=== PATIENT | male | born 1990 | race Caucasian/White ===

== ENCOUNTER 2023-07-29 19:14 | Emergency (ER) | payer OTHER, SELFPAY ==
[2023-07-29 19:28] VITALS: BP 143/91; PULSE 80; RESP 16; TEMP 37.1; O2SAT 98; BMI 27.1
--- NOTE | 2023-07-29 21:21 | ED_ITS ---
HPI - Back Pain/Injury General Chief Complaint: Back Pain/Injury Stated Complaint: Neck muscle inj Time Seen by Provider: 07/29/23 21:20 Source: patient History of Present Illness HPI Narrative: Patient is a 32-year-old healthy male who presents today with left sided back and neck pain. He reports that was lifting 365 lb when he felt pop in his trapezius. He has significant pain reports that he is unable to move his neck at all although he is holding it up. He has no numbness tingling or weakness. Has not taken anything for pain happened just prior to arrival. Related Data Previous Rx's Medication Instructions Recorded cyclobenzaprine 5 mg tablet 5 mg PO TID PRN muscle spasm #10 07/29/23 tabs hydrocodone 5 mg-acetaminophen 325 1 tab PO Q6H PRN pain #10 tabs 07/29/23 mg tablet Allergies Allergy/AdvReac Type Severity Reaction Status Date / Time No Known Drug Allergies Allergy Verified 07/29/23 21:33 Review of Systems Review of Systems ROS Unobtainable: All systems reviewed & are unremarkable except as noted in HPI and below Patient History Social History Smoking Status: Never smoker Smoking Status: Never smoker alcohol intake frequency: holidays/special occasions only Substance Use Type: does not use Exam Initial Vital Signs Initial Vital Signs: Vital Signs Temperature 98.8 F 07/29/23 19:28 Pulse Rate 80 07/29/23 19:28 Respiratory Rate 16 07/29/23 19:28 Blood Pressure 143/91 H 07/29/23 19:28 Pulse Oximetry 98 07/29/23 19:28 Oxygen Delivery Method Room Air 07/29/23 19:28 GENERAL: Well-appearing, well-nourished and in no acute distress. NECK: No vertebral tenderness no step-offs pain with passive motion in all directions of his neck able to hold it up and looks straight forward. BACK: He is tender in his trapezius by his shoulder blade pinpoint reproducible with palpation on left side. CARDIOVASCULAR: peripheral pulses in tact, cap refill <2 sec RESPIRATORY: No respiratory distress, speaks in full sentences without difficulty EXTREMITIES: Normal range of motion, no clubbing or edema. Neurovascularly intact Left arm radial median and ulnar nerve intact distal radial pulse intact. Passive motion stable. He is able to abduct his arm passively but not actively. NEUROLOGICAL: Cranial nerves II through XII grossly intact. Normal gait and speech. SKIN: Warm, dry, no petechiae, no rashes or lesions. Course Orders Ordered: Discontinued Medications Hydrocodone Bitart/Acetaminophen (Hydrocodone/Acet 5/325 Prepack) 1 bottle MISC SEEINSTR ONE Stop: 07/29/23 21:26 Last Admin: 07/29/23 21:33 Dose: 1 bottle Documented By: JESSICA Diazepam (Diazepam 5 Mg Tablet) 5 mg PO NOW ONE Stop: 07/29/23 21:26 Last Admin: 07/29/23 21:33 Dose: 5 mg Documented By: JESSICA Ketorolac Tromethamine (Ketorolac 30 Mg/Ml Vial) 30 mg IM NOW ONE Stop: 07/29/23 21:26 Last Admin: 07/29/23 21:33 Dose: 30 mg Documented By: JESSICA Vital Signs Vital signs: Vital Signs - 8 hr 07/29/23 19:28 07/29/23 21:50 Temperature 98.8 F Pulse Rate 80 80 Respiratory Rate 16 16 Blood Pressure 143/91 H 155/96 H Pulse Oximetry 98 99 Oxygen Delivery Method Room Air Room Air MDM - Back Pain/Injury MDM Narrative Medical decision making narrative: Patient healthy male sounds as though he is having pain after did lifting quite a hefty amount. Tender reproducible to touch. He is not actually having neck pain at all it is all along the trapezius muscle. No weakness. No need for imaging at this time. Supportive care only may require outpatient MRI. Discharge Plan Departure Patient Disposition: Home Clinical Impression: Back pain due to injury Instructions: DI for Back Strain or Sprain Activity Restrictions/Additional Instructions: *You have been diagnosed with probable trapezius injury *What to do: At this time ice or heat as needed. Increase range of motion as tolerated. Avoid lifting until full recovery. May require outpatient MRI if pain continues you will need to talk to her PCM about this. *Continue to take medications as directed Motrin 600 mg every 6 hours if needed for [id number] pain (do not take until morning) [place] 1 tablet every 6 hours if needed for severe pain Flexeril 5 mg every 8 hours if needed for muscle spasm *Follow up with your primary care provider in 2-3 days or call [phone] *Return to ER if you should have increasing pain numbness tingling weakness [or] any new, worsening or concerning symptoms CONTROLLED SUBSTANCE DISCHARGE (Narcotoic/benzodiazepine/Flexeril/Phenergan) 1. You have been prescribed narcotic medications, it does have acetaminophen/Tylenol/paracetamol in it, DO NOT TAKE MORE THAN 4,00mg in 24 hours of Tylenol. TRAMADOL DOES NOT CONTAIN TYLENOL 2. Please understand that we cannot provide further refills of narcotics, benzodiazepines or controlled substances through the ED and her pain management will need to be through your provider. 3. While on these medications you cannot drive or operate heavy machinery. 4. You cannot sign legal documents or perform any duties such as this. 5. As long as you're taking opiate pain medications he should also be taking a stool softener such as Colace, Dulcolax, MiraLAX or prune juice, to help avoid constipation. Prescriptions: New hydrocodone-acetaminophen 5-325 mg tablet 1 tab PO Q6H PRN (Reason: pain) Qty: 10 0RF cyclobenzaprine 5 mg tablet 5 mg PO TID PRN (Reason: muscle spasm) Qty: 10 0RF Stand Alone Forms: Patient Portal/API
[2023-07-29] MEDS: KETOROLAC 30 MG/ML VIAL IM (21:33)
[2023-07-29] MEDS: HYDROCODONE/ACET 5/325 PREPACK 1 BOTTLE MISC (21:33)
[2023-07-29] MEDS: diazePAM 5 MG TABLET PO (21:33)
[2023-07-29 21:50] VITALS: BP 155/96; PULSE 80; RESP 16; O2SAT 99
== END 2023-07-29 21:56 | disposition home or self-care (01) ==
PROVIDERS: Emergency Provider Emergency Medicine
DX: S29.9XXA Unspecified injury of thorax, initial encounter (principal); X50.0XXA Overexertion from strenuous movement or load, initial encounter
CPT/HCPCS: 96372; 99283; J1885

== ENCOUNTER 2023-09-03 17:27 | Emergency (ER) | payer OTHER, SELFPAY ==
[2023-09-03 17:31] VITALS: BP 176/109; PULSE 72; RESP 16; TEMP 36.6; O2SAT 99; BMI 27.1
--- NOTE | 2023-09-03 18:07 | ED_ITS ---
HPI - Neck Pain/Injury General Chief Complaint: Neck Pain/Injury Stated Complaint: stiff neck, pain in back Time Seen by Provider: 09/03/23 18:07 Mode of arrival: Ambulatory History of Present Illness HPI Narrative: 33-year-old male nonsmoker with noncontributory medical history presents with a chief complaint of pain in the left side of his neck and upper shoulder. He was lifting weights, performing a new technique and when lifting heavier weight he is used to up and over his head he felt a pulling sensation. He denies any direct trauma to the bone. Denies any numbness, tingling or weakness. Has significant pain in the musculature on the left side of his neck that is worse when moves and improves with rest. He denies fever chills, takes no blood thinners and is otherwise well and free of complaint Related Data Previous Rx's Medication Instructions Recorded cyclobenzaprine 5 mg tablet 5 mg PO TID PRN muscle spasm #10 07/29/23 tabs hydrocodone 5 mg-acetaminophen 325 1 tab PO Q6H PRN pain #10 tabs 07/29/23 mg tablet cyclobenzaprine 10 mg tablet 10 mg PO TID PRN muscle spasm #14 09/03/23 tabs hydrocodone 5 mg-acetaminophen 325 1 tab PO Q4-6H PRN pain #10 tabs 09/03/23 mg tablet ketorolac 10 mg tablet 10 mg PO Q6H PRN pain #14 tabs 09/03/23 lidocaine 5 % topical patch 1 patch topical DAILY #15 ea 09/03/23 (Lidoderm) Allergies Allergy/AdvReac Type Severity Reaction Status Date / Time No Known Drug Allergies Allergy Verified 07/29/23 21:33 Review of Systems Review of Systems Narrative: GENERAL: Denies chills, fatigue, malaise, fever, sweats. HEENT: Denies sinus pain, ear pain, sore throat, difficulty swallowing, d izziness. RESPIRATORY: Denies dyspnea, cough, wheezing, hemoptysis, sputum. CARDIOVASCULAR: Denies chest pain, palpitations, orthopnea, edema, GASTROINTESTINAL: Denies nausea, vomiting, abdominal pain, diarrhea, constipation, melena. : Denies dysuria, frequency, incontinence, hematuria, urinary retention. MUSCULOSKELETAL: See HPI SKIN: Denies rash, skin lesions, or other NEUROLOGIC: See HPI PSYCHIATRIC: No concerning psychosocial issues. 12 point review of systems is negative except for those stated above Patient History Social History Smoking Status: Never smoker Smoking Status: Never smoker alcohol intake frequency: holidays/special occasions only Substance Use Type: does not use Exam Narrative Exam Narrative: GEN: AOx3 and in mild distress NECK: pain in lateral neck musculature, no pain with axial load. No bony tenderness, no measurable extremity numbness, weakness or tingling EYES: Pupils are equal, round, and reactive to light and accommodation. Extraoccular muscles are intact bilaterally. There is no subconjunctival hemorrhage or exudate. CHEST: Lungs are clear to auscultation bilaterally and free of wheezes, rales, or rhonchi. Heart rate is regular rhythm, there are no murmurs, clicks, rubs, or gallops. There is no chest wall tenderness. ABD: Abdomen is soft and nontender. There is no guarding or rebound. Bowel sounds are normal in all 4 quadrants. There is no mass or organomegaly. EXT: Full painless ROM of all extremities with no loss of sensation or strength. SKIN: Warm, pink, and dry. No erythema or rash Initial Vital Signs Initial Vital Signs: Vital Signs Temperature 98 F 09/03/23 17:31 Pulse Rate 72 09/03/23 17:31 Respiratory Rate 16 09/03/23 17:31 Blood Pressure 176/109 H 09/03/23 17:31 Pulse Oximetry 99 09/03/23 17:31 Oxygen Delivery Method Room Air 09/03/23 17:31 Course Orders Ordered: Discontinued Medications Cyclobenzaprine HCl (Cyclobenzaprine 10 Mg Tablet) 10 mg PO NOW ONE Stop: 09/03/23 18:08 Last Admin: 09/03/23 18:46 Dose: 10 mg Ketorolac Tromethamine (Ketorolac 30 Mg/Ml Vial) 30 mg IM NOW ONE Stop: 09/03/23 18:08 Last Admin: 09/03/23 18:45 Dose: 30 mg Vital Signs Vital signs: Vital Signs - 8 hr 09/03/23 17:31 Temperature 98 F Pulse Rate 72 Respiratory Rate 16 Blood Pressure 176/109 H Pulse Oximetry 99 Oxygen Delivery Method Room Air MDM - Neck Pain/Injury MDM Narrative Medical decision making narrative: [33] year old patient presents with left-sided neck pain Multiple etiologies for patient's symptoms considered including, but not limited to: Muscle spasm versus inflammation versus radiculopathy versus other [] Prior Charts reviewed in our EMR Primary Historian: patient Labs reviewed and interpreted by myself: Patient's history and physical exam reassuring, no direct trauma, no neurologic compromise no numbness, tingling or weakness. Patient's symptoms improved over duration of stay with above-stated therapies. Findings and discharge diagnosis discussed with patient/family followed by verbalization of understanding Return precautions discussed with patient/family whom verbalize understanding of diagnosis and plan Discharge Plan Departure Patient Disposition: Home Clinical Impression: Strain of neck muscle Instructions: Neck Sprain Activity Restrictions/Additional Instructions: *You have been diagnosed with [spasm of the paraspinal musculature on the left side of your neck and upper shoulder. As we discussed your history and physical exam are reassuring and there is no evidence of a bony neck injury, involvement of the spinal cord or other nerves.] *What to do: *Please continue to take your regular medications as directed. [x ] New medication prescriptions sent to your pharmacy: [ [facility]] [ ] New medication written as a paper prescription [ ] No new medications given *Please follow up with your primary care provider in 2-3 days, call for an appointment. Let them know you were seen in the Emergency Department and that we ask that you be seen in follow up. We will electronically transmit a record of today's note if your PCP is in our system *If you do not have a primary care provider please contact the [facility] Resource line at [phone]. They will ask some questions about your medical history and help get you set up with a doctor in the community. *Return to Emergency Department if you should have any new, worsening or concerning symptoms, such as [fever greater than 101 F, shaking chills, worsening pain, persistent vomiting or other bothersome symptoms] You have been prescribed a short course of narcotic medications. These are potentially dangerous and addictive medications that should be used carefully. While on these medications you cannot drive or operate heavy machinery. Additionally, you cannot sign legal documents or perform any duties such as this. Many people get constipated on narcotic medications so it would be advisable to discuss stool softeners with the pharmacist when you peanut picker your prescription. Please understand that we cannot provide further refills of narcotics or controlled substances through the ED and your pain management will need to be through your Primary Care Provider Prescriptions: New cyclobenzaprine 10 mg tablet 10 mg PO TID PRN (Reason: muscle spasm) Qty: 14 0RF hydrocodone-acetaminophen 5-325 mg tablet 1 tab PO Q4-6H PRN (Reason: pain) Qty: 10 0RF ketorolac 10 mg tablet 10 mg PO Q6H PRN (Reason: pain) Qty: 14 0RF lidocaine [Lidoderm] 5 % adhesive patch,medicated 1 patch TOP DAILY Qty: 15 0RF Rx Instructions: leave on most painful area for 12 hrs No Action hydrocodone-acetaminophen 5-325 mg tablet 1 tab PO Q6H PRN (Reason: pain) Qty: 10 0RF cyclobenzaprine 5 mg tablet 5 mg PO TID PRN (Reason: muscle spasm) Qty: 10 0RF Referrals: ProviderDesi [Primary Care Provider] - Stand Alone Forms: Patient Portal/API
[2023-09-03] MEDS: KETOROLAC 30 MG/ML VIAL IM (18:45)
[2023-09-03] MEDS: CYCLOBENZAPRINE 10 MG TABLET PO (18:46)
[2023-09-03 19:18] VITALS: BP 158/80; PULSE 80; RESP 16; O2SAT 97
[2023-09-03] MEDS: LIDOCAINE PATCH 1 EACH ADH..PATCH TOP (19:18)
== END 2023-09-03 19:19 | disposition home or self-care (01) ==
PROVIDERS: Emergency Provider Emergency Medicine
DX: S16.1XXA Strain of muscle, fascia and tendon at neck level, initial encounter (principal); X50.0XXA Overexertion from strenuous movement or load, initial encounter
CPT/HCPCS: 96372; 99283; 99284; J1885

== ENCOUNTER 2024-07-21 15:23 | Emergency (ER) | payer OTHER, SELFPAY ==
[2024-07-21] VITALS (7 sets, daily range): BP systolic 154–199; BP diastolic 89–117; PULSE 85–89; RESP 18; TEMP 36.9; O2SAT 97–100; BMI 27.3
--- NOTE | 2024-07-21 16:28 | DI.CT.S_ITS ---
PROCEDURE: CT ANGIO NECK INDICATIONS: Deadlift injury to left trap last sat TECHNIQUE: After the administration of intravenous contrast, 1.5 mm axial sections acquired from the aortic arch to the [place] of [place]. Maximum intensity projection (MIP) reformats were then performed. COMPARISON: None. FINDINGS: Image quality: Diagnostic NECK ANGIOGRAPHY: Aortic arch and subclavian arteries: Normal flow, no aneurysm. CCAs: No stenosis, occlusion, or aneurysm. ICA origins (by NASCET criteria): No hemodynamically significant narrowing. ICAs: No stenosis, occlusion or aneurysm. ECAs: Origins are patent. Vertebral arteries: Unremarkable Soft tissues: No drainable fluid collection. Lung apices: No pneumothorax Bones: No acute or suspicious abnormality. IMPRESSION: No significant abnormality is seen within the arteries of the neck. If there is high concern for focal musculoskeletal injury, consider targeted MRI. Any quantitative stenosis measurements were performed using the NASCET criteria. Dictated by: Olaf Madrid M.D. on 07/21/2024 at 17:52 Approved by: Olaf Madrid M.D. on 07/21/2024 at 17:56
--- NOTE | 2024-07-21 16:37 | ED.NECK ---
HPI - Neck Pain/Injury General Chief Complaint: Neck Pain/Injury Stated Complaint: back pain Time Seen by Provider: 07/21/24 16:37 Mode of arrival: Ambulatory History of Present Illness HPI Narrative: Patient is a 33-year-old male no significant past medical history comes into the ED for evaluation of left neck and arm pain. States that approximate 1 week ago he injured himself while that lifting, states that he did re-injure himself today after he had a mechanical trip and fall down steps, states that he grabbed the hand rail with his left arm, states that he did not hit his head. States that he had immediate pain in his left neck/left shoulder/upper extremity. He denies any numbness weakness tingling but states it is hard for him to turn his head to the right. Not on any blood thinners no other injuries Related Data Previous Rx's Medication Instructions Recorded cyclobenzaprine 5 mg tablet 5 mg PO TID PRN muscle spasm #10 07/29/23 tabs hydrocodone 5 mg-acetaminophen 325 1 tab PO Q6H PRN pain #10 tabs 07/29/23 mg tablet cyclobenzaprine 10 mg tablet 10 mg PO TID PRN muscle spasm #14 09/03/23 tabs hydrocodone 5 mg-acetaminophen 325 1 tab PO Q4-6H PRN pain #10 tabs 09/03/23 mg tablet ketorolac 10 mg tablet 10 mg PO Q6H PRN pain #14 tabs 09/03/23 lidocaine 5 % topical patch 1 patch topical DAILY #15 ea 09/03/23 (Lidoderm) diazepam 5 mg tablet (Valium) 5 mg PO BEDTIME PRN muscle spasm 07/21/24 #5 tabs oxycodone-acetaminophen 5 mg-325 1 tab PO Q12H PRN pain 3 days #9 07/21/24 mg tablet (Percocet) tabs Allergies Allergy/AdvReac Type Severity Reaction Status Date / Time No Known Drug Allergies Allergy Verified 07/29/23 21:33 Review of Systems Review of Systems Narrative: HEENT: Denies headache, eye drainage, eye irritation, head trauma, sore throat, voice change Cardiovascular: Denies any chest pain, palpitations, shortness of breath, tachycardia Respiratory: Denies any shortness of breath, cough, wheeze, stridor GI/: Denies any abdominal pain, nausea, vomiting, diarrhea, bright red blood per rectum, melanotic stools, urinary frequency, urinary retention, dysuria, hematuria MSK: Positive for left neck pain left shoulder pain Skin: Denies any rashes, lesions, discoloration Neuro: Denies any headache, lightheadedness, dizziness, fainting, weakness Psych: Denies SI/HI Patient History Social History Smoking Status: Never smoker Smoking Status: Never smoker alcohol intake frequency: holidays/special occasions only Substance Use Type: does not use Exam Narrative Exam Narrative: General: Cooperative, comfortable, well-developed, not in acute distress HEENT: Normocephalic, atraumatic, PERRLA, normal sclera, eyelids normal, Neck: Active full range of motion, atraumatic Chest: Normal to inspection, negative crepitus, no overlying erythema ecchymosis Respiratory: Normal respiratory effort, not in acute respiratory distress, clear to auscultation bilaterally negative cough, wheeze, tachypnea, rhonchi, rales Cardiology: Regular rate rhythm negative gallop, murmur, rubs GI/: Normal to inspection, soft, nonrigid, no tenderness to palpation, exam deferred MSK: Patient with decreased range of motion of the left upper extremity secondary to pain, there is tenderness to palpation over the paraspinal muscles and the SCM of the left side, patient neurovascularly intact compartments soft, no other tenderness to palpation of any bony prominences Skin: No rashes lesions noted Neuro: Alert awake oriented x3, moves all 4 extremities spontaneously, cranial nerves intact, able to answer all questions appropriately follows commands appropriately Psych: Cooperative, negative suicidal or homicidal ideations Initial Vital Signs Initial Vital Signs: Vital Signs Temperature 98.4 F 07/21/24 15:28 Pulse Rate 87 07/21/24 15:28 Respiratory Rate 18 07/21/24 15:28 Blood Pressure 165/105 H 07/21/24 15:28 Pulse Oximetry 100 07/21/24 15:28 Oxygen Delivery Method Room Air 07/21/24 15:28 Course Orders Ordered: ED Orders 07/21/24 16:28 CT angio neck Stat 07/21/24 16:35 BMP [Basic Metabolic Panel] Stat CBC No Diff [Complete Blood Count NO DIFF] Stat MAG [Magnesium] Stat Discontinued Medications Diazepam (Diazepam 5 Mg Tablet) 5 mg PO NOW ONE Stop: 07/21/24 16:50 Last Admin: 07/21/24 16:57 Dose: 5 mg Documented By: RB Morphine Sulfate (Morphine 4 Mg/Ml Inj) 4 mg INJ NOW ONE Stop: 07/21/24 16:38 Last Admin: 07/21/24 16:41 Dose: 4 mg Documented By: RB Oxycodone HCl (Oxycodone 5 Mg/5 Ml Oral Solution) 5 mg PO Q4HR PRN PRN Reason: Pain, Moderate (4-6) Oxycodone/Acetaminophen (Oxycodone/Acetaminophen 5/325 Tablet) 1 tab PO NOW ONE Stop: 07/21/24 17:44 Last Admin: 07/21/24 17:49 Dose: 1 tab Documented By: STEPHAN Vital Signs Vital signs: Vital Signs - 8 hr 07/21/24 15:28 07/21/24 17:04 07/21/24 17:05 Temperature 98.4 F Pulse Rate 87 89 88 Respiratory Rate 18 Blood Pressure 165/105 H Pulse Oximetry 100 97 99 Oxygen Delivery Method Room Air 07/21/24 17:05 07/21/24 17:19 07/21/24 17:19 Temperature Pulse Rate 86 Respiratory Rate Blood Pressure 154/101 H 172/97 H Pulse Oximetry 99 Oxygen Delivery Method 07/21/24 17:30 07/21/24 17:30 07/21/24 18:00 Temperature Pulse Rate 87 85 Respiratory Rate Blood Pressure 157/89 H Pulse Oximetry 98 99 Oxygen Delivery Method 07/21/24 18:01 07/21/24 18:01 Temperature Pulse Rate 85 Respiratory Rate Blood Pressure 199/117 H Pulse Oximetry 99 Oxygen Delivery Method MDM - Neck Pain/Injury Differential Diagnosis Differential diagnosis: Likely torticollis, strain of neck muscle and other (Vertebral artery dissection, carotid artery dissection) Condition is:: Improved Lab Data Attestation: I reviewed the patient's lab results. 07/21/24 16:35 07/21/24 16:35 Labs: Lab Results 07/21/24 Range/Units 16:35 WBC 9.0 (4.5-11.0) X10^3/uL RBC 6.06 H (4.5-5.9) X10^6/uL Hgb 17.7 H (13.5-17.5) g/dL Hct 52.7 (41-53) % MCV 86.9 (80-100) fL MCH 29.2 (26-34) PG MCHC 33.6 (30-36) % RDW 14.5 (11.6-14.8) % Plt Count 492 H (150-400) X10^3/uL Sodium 138 (137-145) mmol/L Potassium 3.8 (3.4-5.1) mmol/L Chloride 103 (98-107) mmol/L Carbon Dioxide 24 (22-32) mmol/L BUN 13 (9-20) mg/dL Creatinine 0.95 (0.66-1.25) mg/dL Estimated GFR > 60 (>60) mL/min BUN/Creatinine Ratio 13.7 (6-22) Glucose 108 H (70-100) mg/dL Calcium 9.3 (8.4-10.2) mg/dL Magnesium 2.5 H (1.6-2.3) mg/dL MDM Narrative Medical decision making narrative: Patient is a 33-year-old male no significant past medical history presents to the ED complaining of left neck left shoulder pain after mechanical trip and fall prior to arrival. He states that approximately 1 week ago he strained/injured his left neck/left shoulder lifting. States that today he was going down the stairs slipped and fell, did not hit his head but did grab onto the railing with his left arm and hyper extended it. Denied any numbness weakness tingling, exam without any focal deficits patient was sent for CTA of the neck to rule out carotid or vertebral artery dissection which was negative, patient with significant improved symptoms after administration of Valium and Percocet, lab work unremarkable symptoms and imaging more consistent with cervical neck/arm strains brain. Patient will be sent home in a sling for comfort and instructed follow up with PCP and orthopedic surgery for further evaluation treatment. Patient verbalized understanding of this agrees to being discharged home with outpatient follow-up. Discharge Plan Departure Patient Disposition: Home Clinical Impression: Strain of neck muscle Qualifiers: Encounter type: initial encounter Qualified Code(s): S16.1XXA - Strain of muscle, fascia and tendon at neck level, initial encounter Prescriptions: New diazepam [Valium] 5 mg tablet 5 mg PO BEDTIME PRN (Reason: muscle spasm) Qty: 5 0RF oxycodone-acetaminophen [Percocet] 5-325 mg tablet 1 tab PO Q12H PRN (Reason: pain) 3 Days Qty: 9 0RF No Action cyclobenzaprine 10 mg tablet 10 mg PO TID PRN (Reason: muscle spasm) Qty: 14 0RF hydrocodone-acetaminophen 5-325 mg tablet 1 tab PO Q4-6H PRN (Reason: pain) Qty: 10 0RF ketorolac 10 mg tablet 10 mg PO Q6H PRN (Reason: pain) Qty: 14 0RF lidocaine [Lidoderm] 5 % adhesive patch,medicated 1 patch TOP DAILY Qty: 15 0RF Rx Instructions: leave on most painful area for 12 hrs hydrocodone-acetaminophen 5-325 mg tablet 1 tab PO Q6H PRN (Reason: pain) Qty: 10 0RF cyclobenzaprine 5 mg tablet 5 mg PO TID PRN (Reason: muscle spasm) Qty: 10 0RF Referrals: ProviderDesi [Primary Care Provider] -
[2024-07-21] MEDS: MORPHINE 4 MG/ML INJ INJ (16:41)
[2024-07-21] MEDS: diazePAM 5 MG TABLET PO (16:57)
[2024-07-21 17:00] LABS: Hematocrit 52.7 % (41-53); Hemoglobin 17.7 g/dL (13.5-17.5); Mean Corpuscular HGB Conc 33.6 % (30-36); Mean Corpuscular Hemoglobin 29.2 PG (26-34); Mean Corpuscular Volume 86.9 fL (80-100); Platelet Count 492 X10^3/uL (150-400); Red Blood Cell Count 6.06 X10^6/uL (4.5-5.9); Red Cell Distribution Width 14.5 % (11.6-14.8)
[2024-07-21 17:07] LABS: BUN Creatinine Ratio 13.7 (6-22); Blood Urea Nitrogen 13 mg/dL (9-20); Calcium 9.3 mg/dL (8.4-10.2); Carbon Dioxide 24 mmol/L (22-32); Chloride 103 mmol/L (98-107); Estimated Glomerular Filt Rate > 60 mL/min (>60); Glucose 108 mg/dL (70-100); HEMOLYSIS 31 (0-50); Magnesium 2.5 mg/dL (1.6-2.3); Potassium 3.8 mmol/L (3.4-5.1); Sodium 138 mmol/L (137-145)
[2024-07-21] MEDS: OXYCODONE/ACETAMINOPHEN 5/325 TABLET 1 TAB PO (17:49)
== END 2024-07-21 18:20 | disposition home or self-care (01) ==
PROVIDERS: Emergency Provider Student in an Organized Health Care Education/Training Program
DX: S16.1XXA Strain of muscle, fascia and tendon at neck level, initial encounter (principal); W01.0XXA Fall on same level from slipping, tripping and stumbling without subsequent striking against object, initial encounter
CPT/HCPCS: 36415; 70498; 80048; 83735; 85027; 96374; 99284; J2270; Q9967

== ENCOUNTER 2024-08-30 17:40 | Emergency (ER) | payer OTHER, SELFPAY ==
[2024-08-30] VITALS (13 sets, daily range): BP systolic 146–160; BP diastolic 78–98; PULSE 87–103; RESP 16–18; TEMP 36.7; O2SAT 93–100; BMI 29.0
--- NOTE | 2024-08-30 18:15 | ED_ITS ---
HPI - Back Pain/Injury General Chief Complaint: Back Pain/Injury Stated Complaint: Fell on Stairs, Can't Turn Head Time Seen by Provider: 08/30/24 18:02 History of Present Illness HPI Narrative: 34-year-old male with no reported past medical history presents by private vehicle from home for back and leg pain that occurred approximately 1 hour prior to arrival. Patient states that he has been moving from [place] to [place] and has been carrying lots of heavy boxes. While using a tiff to move his belongings he slipped and fell, hitting his left elbow and landing on his back. Patient states that his elbow is fine, but his entire back is extremely sore and he can barely move due to the pain. Pain radiates down his legs. He states that he had to get his girlfriend to help him into and out of the car. Denies numbness, urinary incontinence, other complaints at this time. Related Data Previous Rx's Medication Instructions Recorded cyclobenzaprine 5 mg tablet 5 mg PO TID PRN muscle spasm #10 07/29/23 tabs hydrocodone 5 mg-acetaminophen 325 1 tab PO Q6H PRN pain #10 tabs 07/29/23 mg tablet cyclobenzaprine 10 mg tablet 10 mg PO TID PRN muscle spasm #14 09/03/23 tabs hydrocodone 5 mg-acetaminophen 325 1 tab PO Q4-6H PRN pain #10 tabs 09/03/23 mg tablet ketorolac 10 mg tablet 10 mg PO Q6H PRN pain #14 tabs 09/03/23 lidocaine 5 % topical patch 1 patch topical DAILY #15 ea 09/03/23 (Lidoderm) diazepam 5 mg tablet (Valium) 5 mg PO BEDTIME PRN muscle spasm 07/21/24 #5 tabs cyclobenzaprine 10 mg tablet 10 mg PO TID PRN muscle spasm #15 08/30/24 tabs methylprednisolone 4 mg tablets in See Rx Instructions PO .COMPLEX 08/30/24 a dose pack (Medrol (Toby)) #21 ea Allergies Allergy/AdvReac Type Severity Reaction Status Date / Time No Known Drug Allergies Allergy Verified 08/30/24 17:52 Patient History Social History Smoking Status: Never smoker Smoking Status: Never smoker alcohol intake frequency: holidays/special occasions only Substance Use Type: does not use Exam Initial Vital Signs Initial Vital Signs: Vital Signs Temperature 98.1 F 08/30/24 17:46 Pulse Rate 103 H 08/30/24 17:46 Respiratory Rate 18 08/30/24 17:46 Blood Pressure 154/93 H 08/30/24 17:46 Pulse Oximetry 100 08/30/24 17:46 Oxygen Delivery Method Room Air 08/30/24 17:46 Const: Awake, alert, tearful, shaking, appears in significant pain Cardiac: regular rate, regular rhythm RESP: unlabored, clear bilaterally, no wheezing MSK:Generalized tenderness over cervical, thoracic, and lumbar back Skin: Warm, Dry, intact, no rashes Neuro: AO x3, CN II-XII grossly intact, dorsiflexion slightly less in RLE. Equal plantarflexion bilaterally Course Orders Ordered: Discontinued Medications Dexamethasone (Dexamethasone 10 Mg/Ml Vial) 10 mg IV NOW ONE Stop: 08/30/24 18:25 Last Admin: 08/30/24 18:56 Dose: 10 mg Documented By: OLGA Diazepam (Diazepam 10 Mg/2 Ml Syringe) 3 mg IV NOW ONE Stop: 08/30/24 18:25 Last Admin: 08/30/24 18:56 Dose: 3 mg Documented By: OLGA Diazepam (Diazepam 10 Mg/2 Ml Syringe) 3 mg IV NOW ONE Stop: 08/30/24 22:41 Last Admin: 08/30/24 22:49 Dose: 3 mg Documented By: MONICO Acetaminophen (Ofirmev) 1,000 mg in 100 mls @ 400 mls/hr IV NOW ONE Stop: 08/30/24 18:38 Last Infusion: 08/30/24 19:53 Dose: Infused Documented By: Admin: 08/30/24 18:56 Dose: 400 mls/hr Documented By: OLGA Ketorolac Tromethamine (Ketorolac 30 Mg/Ml Vial) 15 mg IV NOW ONE Stop: 08/30/24 20:17 Last Admin: 08/30/24 20:27 Dose: 15 mg Documented By: OLGA Ketorolac Tromethamine (Ketorolac 30 Mg/Ml Vial) 15 mg IV NOW ONE Stop: 08/30/24 22:41 Last Admin: 08/30/24 22:49 Dose: 15 mg Documented By: MONICO Morphine Sulfate (Morphine 4 Mg/Ml Inj) 4 mg IV NOW ONE Stop: 08/30/24 19:37 Last Admin: 08/30/24 19:52 Dose: 4 mg Documented By: MARIANNE Vital Signs Vital signs: Vital Signs - 8 hr 08/30/24 21:42 08/30/24 21:42 08/30/24 22:00 Pulse Rate 96 H 91 H Respiratory Rate Blood Pressure 157/91 H Pulse Oximetry 96 95 Oxygen Delivery Method Room Air 08/30/24 22:00 08/30/24 22:30 08/30/24 22:30 Pulse Rate 90 Respiratory Rate 18 Blood Pressure 146/87 H 146/86 H Pulse Oximetry 93 Oxygen Delivery Method Room Air MDM - Back Pain/Injury Imaging Data CT - cervical spine: Radiologist's Impression: PROCEDURE: CT LUMBAR SPINE WO CON INDICATIONS: GLF, LOW BACK PAIN,DIFFICULTY MOVING R LEG TECHNIQUE: Noncontrast 3 mm thick sections acquired from the T12 level to the sacrum. Sagittal and coronal reformats were constructed. For radiation dose reduction, the following was used: automated exposure control. COMPARISON: [facility], CT, CT THORACIC SPINE WO CON, 08/30/2024, 18:52. FINDINGS: Image quality: Excellent. Bones: There is normal bony alignment. No acute vertebral body compression fractures. No suspicious lytic or blastic bony lesions. No pars defects. No significant disc bulge, spinal stenosis or foraminal narrowing. Soft tissues: No retroperitoneal masses or hematomas. Visualized aorta is normal in caliber. IMPRESSION: No visualized fracture. Dictated by: Florinda Concepcion M.D. on 08/30/2024 at 19:52 Approved by: Florinda Concepcion M.D. on 08/30/2024 at 19:53 PROCEDURE: CT CERVICAL SPINE WO CON INDICATIONS: GLF, C-SPINE TENDERNESS TECHNIQUE: Noncontrast 3 mm thick sections acquired from the skull base to the T4 level. Sagittal and coronal reformats were then constructed. For radiation dose reduction, the following was used: automated exposure control, adjustment of mA and/or kV according to patient size. COMPARISON: [facility], CT, CT THORACIC SPINE WO CON, 08/30/2024, 18:52. FINDINGS: Image quality: Excellent. Bones: No fractures or dislocations. Visualized superior ribs are intact. Soft tissues: Prevertebral soft tissues are normal in thickness. No paravertebral hematomas. No apical pneumothoraces. IMPRESSION: No displaced fracture or traumatic subluxation. Dictated by: Florinda Concepcion M.D. on 08/30/2024 at 19:53 Approved by: Florinda Concepcion M.D. on 08/30/2024 at 19:54 PROCEDURE: CT THORACIC SPINE WO CON INDICATIONS: GLF, BACK PAIN TECHNIQUE: Noncontrast 3 mm thick sections acquired through the region of interest in the thoracic spine. Sagittal and coronal reformats were then constructed. For radiation dose reduction, the following was used: automated exposure control. COMPARISON: [facility], CT, CT CERVICAL SPINE WO CON, 08/30/2024, 18:52. [facility], CT, CT LUMBAR SPINE WO CON, 08/30/2024, 18:29. FINDINGS: Image quality: Excellent. Bones: There is normal overall bony alignment. No acute vertebral body compression fractures. No suspicious sclerotic or lytic bony lesions. Central spinal canal is of normal overall caliber. Soft tissues: No paravertebral masses or hematomas. Visualized posteromedial lungs appear clear. IMPRESSION: No visualized fracture. Dictated by: Florinda Concepcion M.D. on 08/30/2024 at 19:54 Approved by: Florinda Concepcion M.D. on 08/30/2024 at 19:55 3 PROCEDURE: MR LUMBAR SPINE WO CON INDICATIONS: SEVERE LOW BACK PAIN, R LEG WEAKNESS S/P FALL TECHNIQUE: Noncontrast sagittal T1 spin echo and T2 fast echo, sagittal STIR, and T2 fast spin echo through the lumbar spine. In cases with scoliosis, additional coronal T2 fast spin echo may be performed. COMPARISON: [facility], CT, CT LUMBAR SPINE WO CON, 08/30/2024, 18:29. FINDINGS: Image quality: Excellent. Alignment and Curvature: There is mild straightening of normal lumbar lordosis. No spondylolisthesis. Bone Marrow: Marrow is of normal overall signal. No acute vertebral body compression fractures. Spinal Cord: Conus medullaris terminates at the T12-L1 level. Visualized cord demonstrates normal signal and size. Paraspinous Soft Tissues: No paravertebral masses. T12-L1: Normal appearance. L1-L2: Normal appearance. L2-L3: Normal appearance. L3-L4: Bilateral facet arthrosis is seen. No significant central canal stenosis or neural foraminal narrowing. L4-L5: There is disc desiccation. Diffuse disc bulge and bilateral facet arthrosis is seen causing mild central canal stenosis, moderate left-sided neural foraminal narrowing and mild right-sided neural foraminal narrowing. Bulging disc likely contacting bilateral L4 nerve roots. L5-S1: There is disc desiccation. Diffuse disc bulge and bilateral facet arthrosis with mild bilateral neural foraminal narrowing. IMPRESSION: 1. No marrow edema. No acute vertebral body compression fracture or significant spondylolisthesis. 2. Degenerative disc bulge and bilateral facet arthrosis at L4-5 and L5-S1 levels causing various degrees of central canal stenosis and bilateral neural foraminal narrowing as described above. 3. No gross paraspinous soft tissue abnormalities. Dictated by: Larry Cohn M.D. on 08/30/2024 at 21:28 Approved by: Larry Cohn M.D. on 08/30/2024 at 21:31 [facility] Narrative Medical decision making narrative: Slip and fall with severe back pain. Patient seems to have weaker dorsiflexion in his right leg than his left leg, patient at this time is unable to identify if this is due to pain or if it is true weakness. Patient was shaking, tearful, seems to be very upset in the ER room. IV medications and CT imaging to be ordered. Patient was having difficulty describing where exactly his pain is located. He states that he was pain all across his back including his neck. Patient continuing to complain of significant pain even after IV medications administered. Small dose of morphine ordered for assessment. CT imaging negati ve for acute traumatic findings. With the severity of patient's pain and reported symptoms without obvious cause on CT scan a noncontrast MRI will be ordered. Noncontrast MRI shows L4-L5 disc bulge, mild canal stenosis, no evidence of cord compression or other findings. Patient's pain is now much more controlled, he was able to ambulate to and from the bathroom unassisted. Patient denies any problems ambulating, any difficulties urinating, any foot drop, or other complaints. He did have some return of pain when he swung his legs to get back into the bed, however patient has demonstrated improvement and is reporting feeling better. All CT and MRI results discussed with the patient at bedside. Steroids, muscle relaxers sent to pharmacy of choice. Patient was recommended to follow up with ortho spine if he continues to experience symptoms and a referral number was provided. A single prepack given to patient to cover his worst pains tonight. Patient also given a copy of his CT and MRI reports to bring to his primary care doctor's office at the [facility]. Discharge Plan Departure Patient Disposition: Home Clinical Impression: Strain of lumbar region Instructions: DI for Back Pain With Sciatica Activity Restrictions/Additional Instructions: Your CTs today did not show any fracture. The MRI of your lower spine showed a small amount of bulging discs but your spinal cord is intact without compression. Take 1000 mg of Tylenol and 400 mg of ibuprofen every 4-6 hours f or pain. In addition a steroid pack and muscle relaxers has been sent to the [facility] in [place]. It was very important that you continue to move and do gentle activity- if you stop moving your muscles will become even more sore. Follow up with ortho spine if you continue to have problems. If you notice weakness of your extremities, are unable to urinate, or if you notice numbness after you wipe using the restroom return immediately to the emergency department for repeat evaluation. Prescriptions: New methylprednisolone [Medrol (Toby)] 4 mg tablets,dose pack See Rx Instructions .ROUTE .COMPLEX Qty: 21 0RF Rx Instructions: orally per package directions cyclobenzaprine 10 mg tablet 10 mg PO TID PRN (Reason: muscle spasm) Qty: 15 0RF No Action cyclobenzaprine 10 mg tablet 10 mg PO TID PRN (Reason: muscle spasm) Qty: 14 0RF hydrocodone-acetaminophen 5-325 mg tablet 1 tab PO Q4-6H PRN (Reason: pain) Qty: 10 0RF ketorolac 10 mg tablet 10 mg PO Q6H PRN (Reason: pain) Qty: 14 0RF lidocaine [Lidoderm] 5 % adhesive patch,medicated 1 patch TOP DAILY Qty: 15 0RF Rx Instructions: leave on most painful area for 12 hrs hydrocodone-acetaminophen 5-325 mg tablet 1 tab PO Q6H PRN (Reason: pain) Qty: 10 0RF cyclobenzaprine 5 mg tablet 5 mg PO TID PRN (Reason: muscle spasm) Qty: 10 0RF diazepam [Valium] 5 mg tablet 5 mg PO BEDTIME PRN (Reason: muscle spasm) Qty: 5 0RF Referrals: Provider,Desi MCBRIDE [Primary Care Provider] - Stand Alone Forms: Patient Portal/API
--- NOTE | 2024-08-30 18:25 | DI.CT.S_ITS ---
PROCEDURE: CT LUMBAR SPINE WO CON INDICATIONS: GLF, LOW BACK PAIN,DIFFICULTY MOVING R LEG TECHNIQUE: Noncontrast 3 mm thick sections acquired from the T12 level to the sacrum. Sagittal and coronal reformats were constructed. For radiation dose reduction, the following was used: automated exposure control. COMPARISON: [facility], CT, CT THORACIC SPINE WO CON, 08/30/2024, 18:52. FINDINGS: Image quality: Excellent. Bones: There is normal bony alignment. No acute vertebral body compression fractures. No suspicious lytic or blastic bony lesions. No pars defects. No significant disc bulge, spinal stenosis or foraminal narrowing. Soft tissues: No retroperitoneal masses or hematomas. Visualized aorta is normal in caliber. IMPRESSION: No visualized fracture. Dictated by: Florinda Concepcion M.D. on 08/30/2024 at 19:52 Approved by: Florinda Concepcion M.D. on 08/30/2024 at 19:53
--- NOTE | 2024-08-30 18:40 | DI.CT.S_ITS ---
PROCEDURE: CT THORACIC SPINE WO CON INDICATIONS: GLF, BACK PAIN TECHNIQUE: Noncontrast 3 mm thick sections acquired through the region of interest in the thoracic spine. Sagittal and coronal reformats were then constructed. For radiation dose reduction, the following was used: automated exposure control. COMPARISON: [facility], CT, CT CERVICAL SPINE WO CON, 08/30/2024, 18:52. [facility], CT, CT LUMBAR SPINE WO CON, 08/30/2024, 18:29. FINDINGS: Image quality: Excellent. Bones: There is normal overall bony alignment. No acute vertebral body compression fractures. No suspicious sclerotic or lytic bony lesions. Central spinal canal is of normal overall caliber. Soft tissues: No paravertebral masses or hematomas. Visualized posteromedial lungs appear clear. IMPRESSION: No visualized fracture. Dictated by: Florinda Concepcion M.D. on 08/30/2024 at 19:54 Approved by: Florinda Concepcion M.D. on 08/30/2024 at 19:55
--- NOTE | 2024-08-30 18:40 | DI.CT.S_ITS ---
PROCEDURE: CT CERVICAL SPINE WO CON INDICATIONS: GLF, C-SPINE TENDERNESS TECHNIQUE: Noncontrast 3 mm thick sections acquired from the skull base to the T4 level. Sagittal and coronal reformats were then constructed. For radiation dose reduction, the following was used: automated exposure control, adjustment of mA and/or kV according to patient size. COMPARISON: [facility], CT, CT THORACIC SPINE WO CON, 08/30/2024, 18:52. FINDINGS: Image quality: Excellent. Bones: No fractures or dislocations. Visualized superior ribs are intact. Soft tissues: Prevertebral soft tissues are normal in thickness. No paravertebral hematomas. No apical pneumothoraces. IMPRESSION: No displaced fracture or traumatic subluxation. Dictated by: Florinda Concepcion M.D. on 08/30/2024 at 19:53 Approved by: Florinda Concepcion M.D. on 08/30/2024 at 19:54
[2024-08-30] MEDS: DEXAMETHASONE 10 MG/ML VIAL IV (18:56)
[2024-08-30] MEDS: diazePAM 10 MG/2 ML SYRINGE 3 MG IV ×2 (18:56→22:49)
[2024-08-30] MEDS: ACETAMINOPHEN IV 1,000 MG/100 ML VIAL 400 MG IV (18:56)
[2024-08-30] MEDS: MORPHINE 4 MG/ML INJ IV (19:52)
--- NOTE | 2024-08-30 20:18 | DI.MRI.S_ITS ---
PROCEDURE: MR LUMBAR SPINE WO CON INDICATIONS: SEVERE LOW BACK PAIN, R LEG WEAKNESS S/P FALL TECHNIQUE: Noncontrast sagittal T1 spin echo and T2 fast echo, sagittal STIR, and T2 fast spin echo through the lumbar spine. In cases with scoliosis, additional coronal T2 fast spin echo may be performed. COMPARISON: [facility], CT, CT LUMBAR SPINE WO CON, 08/30/2024, 18:29. FINDINGS: Image quality: Excellent. Alignment and Curvature: There is mild straightening of normal lumbar lordosis. No spondylolisthesis. Bone Marrow: Marrow is of normal overall signal. No acute vertebral body compression fractures. Spinal Cord: Conus medullaris terminates at the T12-L1 level. Visualized cord demonstrates normal signal and size. Paraspinous Soft Tissues: No paravertebral masses. T12-L1: Normal appearance. L1-L2: Normal appearance. L2-L3: Normal appearance. L3-L4: Bilateral facet arthrosis is seen. No significant central canal stenosis or neural foraminal narrowing. L4-L5: There is disc desiccation. Diffuse disc bulge and bilateral facet arthrosis is seen causing mild central canal stenosis, moderate left-sided neural foraminal narrowing and mild right-sided neural foraminal narrowing. Bulging disc likely contacting bilateral L4 nerve roots. L5-S1: There is disc desiccation. Diffuse disc bulge and bilateral facet arthrosis with mild bilateral neural foraminal narrowing. IMPRESSION: 1. No marrow edema. No acute vertebral body compression fracture or significant spondylolisthesis. 2. Degenerative disc bulge and bilateral facet arthrosis at L4-5 and L5-S1 levels causing various degrees of central canal stenosis and bilateral neural foraminal narrowing as described above. 3. No gross paraspinous soft tissue abnormalities. Dictated by: Larry Cohn M.D. on 08/30/2024 at 21:28 Approved by: Larry Cohn M.D. on 08/30/2024 at 21:31
[2024-08-30] MEDS: KETOROLAC 30 MG/ML VIAL 15 MG IV ×2 (20:27→22:49)
--- NOTE | 2024-08-30 20:31 | PC.NURSE ---
Addendum entered by Swati Zapien R.N. 08/30/24 22:13: Pt returns from [facility] and belongings brought back from security. Pt confirms all belongings are returned. Original Note: Pt asks for his belongings, including his wallet, phone, watch and keys locked up while at [facility]. Those items are labeled with his information and given to security while patient at [facility].
--- NOTE | 2024-08-30 21:14 | PC.NURSE ---
Pt ambulated to restroom, Pt c/o pain and dificulty lifting feet up onto gurney
== END 2024-08-30 23:05 | disposition home or self-care (01) ==
PROVIDERS: Emergency Provider Emergency Medicine
DX: S39.012A Strain of muscle, fascia and tendon of lower back, initial encounter (principal); M54.2 Cervicalgia; M54.6 Pain in thoracic spine; M62.81 Muscle weakness (generalized); W01.0XXA Fall on same level from slipping, tripping and stumbling without subsequent striking against object, initial encounter
CPT/HCPCS: 36415; 72125; 72128; 72131; 72148; 96365; 96375; 96376; 99284; 99285; J0136; J1100; J1885; J2270; J3360

== ENCOUNTER 2024-08-31 09:00 | Emergency (ER) | payer OTHER, SELFPAY ==
[2024-08-31 09:10] VITALS: BP 143/88; PULSE 103; RESP 22; TEMP 36.8; O2SAT 99; BMI 29.0
--- NOTE | 2024-08-31 09:20 | ED_ITS ---
HPI - Back Pain/Injury General Chief Complaint: Back Pain/Injury Stated Complaint: Back pain isn't going away Time Seen by Provider: 08/31/24 09:20 Source: patient History of Present Illness HPI Narrative: Patient is a 34-year-old male no past medical history presents for persistent low back pain, was seen here on 08/30/2024 after he had a ground level fall while he was moving. Patient did have CT and MRI of his low back at that time. MRI did show some mild degenerative disc bulge at the L4 through S1 but no acute findings. Patient states that he has had persistent pain therefore decided come into the ED for further evaluation treatment. No numbness weakness tingling down bilateral lower extremity is able to stand bear weight ambulate however slow secondary to pain. No saddle paresthesias no urinary or bladder retention or incontinence. No new traumas Related Data Previous Rx's Medication Instructions Recorded cyclobenzaprine 5 mg tablet 5 mg PO TID PRN muscle spasm #10 07/29/23 tabs hydrocodone 5 mg-acetaminophen 325 1 tab PO Q6H PRN pain #10 tabs 07/29/23 mg tablet cyclobenzaprine 10 mg tablet 10 mg PO TID PRN muscle spasm #14 09/03/23 tabs hydrocodone 5 mg-acetaminophen 325 1 tab PO Q4-6H PRN pain #10 tabs 09/03/23 mg tablet ketorolac 10 mg tablet 10 mg PO Q6H PRN pain #14 tabs 09/03/23 lidocaine 5 % topical patch 1 patch topical DAILY #15 ea 09/03/23 (Lidoderm) diazepam 5 mg tablet (Valium) 5 mg PO BEDTIME PRN muscle spasm 07/21/24 #5 tabs cyclobenzaprine 10 mg tablet 10 mg PO TID PRN muscle spasm #15 08/30/24 tabs methylprednisolone 4 mg tablets in See Rx Instructions PO .COMPLEX 08/30/24 a dose pack (Medrol (Toby)) #21 ea oxycodone-acetaminophen 5 mg-325 1 tab PO Q8H PRN pain 3 days #9 08/31/24 mg tablet (Percocet) tabs Allergies Allergy/AdvReac Type Severity Reaction Status Date / Time No Known Drug Allergies Allergy Verified 08/30/24 17:52 Review of Systems Review of Systems Narrative: HEENT: Denies headache, eye drainage, eye irritation, head trauma, sore throat, voice change Cardiovascular: Denies any chest pain, palpitations, shortness of breath, tachycardia Respiratory: Denies any shortness of breath, cough, wheeze, stridor GI/: Denies any abdominal pain, nausea, vomiting, diarrhea, bright red blood per rectum, melanotic stools, urinary frequency, urinary retention, dysuria, hematuria MSK: Positive low back pain Skin: Denies any rashes, lesions, discoloration Neuro: Denies any headache, lightheadedness, dizziness, fainting, weakness Psych: Denies SI/HI Patient History Social History Smoking Status: Never smoker Smoking Status: Never smoker alcohol intake frequency: holidays/special occasions only Substance Use Type: does not use Exam Narrative Exam Narrative: General: Cooperative, comfortable, well-developed, not in acute distress HEENT: Normocephalic, atraumatic, PERRLA, normal sclera, eyelids normal, Neck: Active full range of motion, atraumatic Chest: Normal to inspection, negative crepitus, no overlying erythema ecchymosis Respiratory: Normal respiratory effort, not in acute respiratory distress, clear to auscultation bilaterally negative cough, wheeze, tachypnea, rhonchi, rales Cardiology: Regular rate rhythm negative gallop, murmur, rubs GI/: Normal to inspection, soft, nonrigid, no tenderness to palpation, exam deferred MSK: Full range of active range of motion of all 4 extremities, atraumatic, patient is able to stand bear weight ambulate unassisted however slowed secondary to pain neurovascularly intact bilateral lower extremities Skin: No rashes lesions noted Neuro: Alert awake oriented x3, moves all 4 extremities spontaneously, cranial nerves intact, able to answer all questions appropriately follows commands appropriately Psych: Cooperative, negative suicidal or homicidal ideations Initial Vital Signs Initial Vital Signs: Vital Signs Temperature 98.2 F 08/31/24 09:10 Pulse Rate 103 H 08/31/24 09:10 Respiratory Rate 22 08/31/24 09:10 Blood Pressure 143/88 H 08/31/24 09:10 Pulse Oximetry 99 08/31/24 09:10 Oxygen Delivery Method Room Air 08/31/24 09:10 Course Orders Ordered: Discontinued Medications Dexamethasone (Dexamethasone 10 Mg/Ml Vial) 10 mg IV NOW ONE Stop: 08/31/24 11:11 Last Admin: 08/31/24 11:21 Dose: 10 mg Documented By: NEGRITA Diazepam (Diazepam 5 Mg Tablet) 5 mg PO NOW ONE Stop: 08/31/24 09:29 Last Admin: 08/31/24 09:47 Dose: 5 mg Documented By: STEPHAN Hydromorphone HCl (Hydromorphone 0.5 Mg Inj) 0.5 mg IV NOW ONE Stop: 08/31/24 11:11 Last Admin: 08/31/24 11:20 Dose: 0.5 mg Documented By: NEGRITA Morphine Sulfate (Morphine 4 Mg/Ml Inj) 4 mg IM NOW ONE Stop: 08/31/24 09:29 Last Admin: 08/31/24 09:47 Dose: 4 mg Documented By: STEPHAN Vital Signs Vital signs: Vital Signs - 8 hr 08/31/24 09:10 08/31/24 09:36 08/31/24 10:00 Temperature 98.2 F Pulse Rate 103 H 103 H 103 H Respiratory Rate 22 Blood Pressure 143/88 H Pulse Oximetry 99 96 95 Oxygen Delivery Method Room Air 08/31/24 10:00 Temperature Pulse Rate Respiratory Rate Blood Pressure 151/95 H Pulse Oximetry Oxygen Delivery Method MDM - Back Pain/Injury MDM Narrative Medical decision making narrative: Patient 34-year-old male recently seen here for low back pain after mechanical trip and fall imaging at that time was less than 24 hours ago did have MRI without any acute fractures or findings. Patient without any cauda equina symptoms, in significant improvement of pain after administration of medication, is able to stand bear weight ambulate unassisted here however slow secondary to pain. PVR 0, strict return precautions given safe for discharge home with outpatient follow up Discharge Plan Departure Patient Disposition: Home Clinical Impression: Strain of lumbar region Activity Restrictions/Additional Instructions: Please follow-up with your orthopedic surgeon and PCP Please read the discharge instructions sheet carefully and bring all papers to all doctor follow-up visits, as it may contain information that your doctor may want to see. Disease processes change and evolve, if your symptoms worsen or if you develop any new symptoms that are concerning to you please return for evaluation. Your evaluation today does not show any evidence of any life- threatening/serious illnesses requiring admission to the hospital or surgery. Please follow-up with your doctor for re-evaluation in approximately 1 day. Seek immediate medical attention for any worrisome symptoms. Prescriptions: New oxycodone-acetaminophen [Percocet] 5-325 mg tablet 1 tab PO Q8H PRN (Reason: pain) 3 Days Qty: 9 0RF No Action cyclobenzaprine 10 mg tablet 10 mg PO TID PRN (Reason: muscle spasm) Qty: 14 0RF hydrocodone-acetaminophen 5-325 mg tablet 1 tab PO Q4-6H PRN (Reason: pain) Qty: 10 0RF ketorolac 10 mg tablet 10 mg PO Q6H PRN (Reason: pain) Qty: 14 0RF lidocaine [Lidoderm] 5 % adhesive patch,medicated 1 patch TOP DAILY Qty: 15 0RF Rx Instructions: leave on most painful area for 12 hrs methylprednisolone [Medrol (Toby)] 4 mg tablets,dose pack See Rx Instructions .ROUTE .COMPLEX Qty: 21 0RF Rx Instructions: orally per package directions cyclobenzaprine 10 mg tablet 10 mg PO TID PRN (Reason: muscle spasm) Qty: 15 0RF hydrocodone-acetaminophen 5-325 mg tablet 1 tab PO Q6H PRN (Reason: pain) Qty: 10 0RF cyclobenzaprine 5 mg tablet 5 mg PO TID PRN (Reason: muscle spasm) Qty: 10 0RF diazepam [Valium] 5 mg tablet 5 mg PO BEDTIME PRN (Reason: muscle spasm) Qty: 5 0RF Referrals: ProviderDesi [Primary Care Provider] - Stand Alone Forms: Patient Portal/API
[2024-08-31 09:36] VITALS: PULSE 103; O2SAT 96
[2024-08-31] MEDS: diazePAM 5 MG TABLET PO (09:47)
[2024-08-31] MEDS: MORPHINE 4 MG/ML INJ IM (09:47)
[2024-08-31 10:00] VITALS: BP 151/95; PULSE 103; O2SAT 95
[2024-08-31] MEDS: HYDROMORPHONE 0.5 MG INJ IV (11:20)
[2024-08-31] MEDS: DEXAMETHASONE 10 MG/ML VIAL IV (11:21)
[2024-08-31 12:26] VITALS: O2SAT 97
[2024-08-31 12:27] VITALS: BP 155/77; PULSE 100; O2SAT 94
== END 2024-08-31 12:54 | disposition home or self-care (01) ==
PROVIDERS: Emergency Provider Student in an Organized Health Care Education/Training Program
DX: S39.012A Strain of muscle, fascia and tendon of lower back, initial encounter (principal); X58.XXXA Exposure to other specified factors, initial encounter
CPT/HCPCS: 51798; 96372; 96374; 96375; 99284; J1100; J1170; J2270

== ENCOUNTER 2025-04-12 07:30 | Outpatient (RCR) | payer OTHER, SELFPAY ==
--- NOTE | 2025-03-15 16:31 | PT.OIE ---
Current Diagnoses Low back pain, unspecified (03/15/25) Visit Care Team Role Provider Type APOLLO Mcwilliams Attending Provider Non-Staff Family Provider Primary Care Provider Referring Provider Specialty: Nursing Address: [address] [place] [address], [id number] Email: Physical Therapy Initial Evaluation PT-OP-A Visit Information Start: 03/14/25 17:29 Freq: Status: Active Protocol: Document 03/15/25 07:34 MB (Rec: 03/15/25 08:14 MB Desktop) Out-Patient Physical Therapy Visit Information Visit Information Visit Type Initial Evaluation Visit Note Pt arrives at 0734, 19 minutes late before evaluation Visit Start Time 07:34 Visit Stop Time 08:15 Visit Number 1 Number of MORTGAGE UNDERWRITER Visits 0 Evaluation Information Evaluation Date 03/15/25 PT-OP-B Current Condition Start: 03/14/25 17:29 Freq: Status: Active Protocol: Document 03/15/25 07:34 MB (Rec: 03/15/25 08:14 MB Desktop) Current Condition History of Current Condition Onset Date 08/30/24 Current Complaints Severe LBP that is intermittent History of Current Condition Pt was moving the end of August and he slipped when using tiff up the steps and he hurt his back. He lifts repetitively heavy weight for his job at the [employer]. He came to the ED and had diagnostics as below and was given pain medication. He has not been able to lift for exercise since the injury. He has had a change in his previous duties since the injury but does anticipate returning to his previous job by August. Pt has trouble sleeping and he gets back pain flare-ups. Lifting blinds overhead and sneezing caused a flare-up. He has had a few ED visits. Pt reports left lateral distal leg has needles feeling. He has not had legs given way or feeling week. Being upright is better. Stretching helps. Prior Treatments and Tests MRI lumbar spine 08/30/24: Degenerative disc bulge and bilateral facet arthrosis at L4-5 and L5-S1 levels causing various degrees of central canal stenosis and bilateral neural foraminal narrowing as described above. Treatment Goals Patient/Caregiver Goals To decrease pain PT-OP-C Subjective Start: 03/14/25 17:29 Freq: Status: Active Protocol: Document 03/15/25 07:34 MB (Rec: 03/15/25 08:14 MB Desktop) OP-PT Subjective Patient Comments Patient Comments See history of current condition Patient Questionnaires Oswestry Low Back Index Oswestry Score 13 Oswestry Impairment 20 to 39% Impaired (Score 20- 39) PT-OP-J Posture/Palpation/Skin Start: 03/14/25 17:29 Freq: Status: Active Protocol: Document 03/15/25 07:34 MB (Rec: 03/15/25 08:14 MB Desktop) Posture Evaluation Comments Posture Comments Gait pattern in socks: slow and decreased arms swing and stiffness at low back with gait Posture in standing in socks: forward head and rounded shoulders, left scapula is lower and less muscular than right scapular area and shoulder, right scapula mildly higher and forward than the left, pt is right handed, right iliac crest mildly higher than the left, increased mid foot overpronation, worse on the right. Repeated forward flexion: pain in LB only and fingertips 6 from the floor; repeated flexion pain the same and he can reach to feet last rep Repeated lumbar extension: 10 deg and repeated extension is bothersome SB in standing: B stiffness, more symptoms right SI area with left SB and pt moves about 15 deg both directions B Slump negative PT-OP-M Strength Start: 03/14/25 17:29 Freq: Status: Active Protocol: Document 03/15/25 07:34 MB (Rec: 03/15/25 08:14 MB Desktop) Hip Strength Hip Manual Muscle Testing Left Flexion (L2) 4+ Good+ Extension (S1) 4 Good Abduction 4+ Good+ Right Flexion (L2) 5 Normal Extension (S1) 5 Normal Abduction 5 Normal Comments B passive SLR about 45 deg L SI joint is stiffer than the right Knee Strength Knee Manual Muscle Testing Left Flexion (S2) 5 Normal Extension (L3) 5 Normal Right Flexion (S2) 5 Normal Extension (L3) 5 Normal Ankle/Foot Strength Ankle and Foot Manual Muscle Testing Left Dorsiflexion (L4) 5 Normal Right Dorsiflexion (L4) 5 Normal Toe Strength Toe Manual Muscle Testing Left Great Toe Flexion 5 Normal Right Great Toe Flexion 5 Normal PT-OP-Q Treatments Start: 03/14/25 17:29 Freq: Status: Active Protocol: Document 03/15/25 07:34 MB (Rec: 03/15/25 08:14 MB Desktop) Therapeutic Exercises Supine Exercises Pelvic realignment exercises Supine Exercise Name HEP and provided handout Side bilateral Equipment Used Blue ball Reps/Minutes 5 reps, 3 sec hold all exercises in order Comments Feet together ball squeeze iso , knee opp ankle iso, thigh press down iso Self-Care/Home Management Treatment Education Patient Education Body Mechanics,Home Exercise Program,Joint Protection, Posture Other Education Benefits of pelvic realignment exercises twice a day, benefits of icing and heating, pillow between legs and arms in side lying, log rolling, benefits of and plan for OPPT (alignment, posture, flexibility and then strength) and goal for pt to feel well- listened to during PT course PT-OP-T Assessment and Plan Start: 03/14/25 17:29 Freq: Status: Active Protocol: Document 03/15/25 07:34 MB (Rec: 03/15/25 08:14 MB Desktop) Physical Therapy Assessment Rehab Potential Rehabilitation Potential Fair Evaluation Complexity Number of Personal Factors/Comorbidities 1-2 Number of Body Systems Impaired 1-2 Clinical Presentation at Evaluation Evolving Impairments Impairments Gait,Pain,Posture,ROM,Soft Tissue Mobility,Strength Assessment Summary Assessment 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 MRI revealed degenerative disc bulge and bilateral facet arthrosis at L4-5 and L5-S1 levels causing various degrees of central canal stenosis and bilateral neural foraminal narrowing. Pt presents with postural changes, left leg weakness, reporting feeling better when up but less pain with forward flexion than with lumbar extension in standing and SI stiffness. He will benefit from PT to improve alignment, flexibility, myofascial motility, pain, core and LE strengthening, balance and body mechanics/ ergonomics. He thinks he will return to his previous duties in 08/25 that include heavy and repetitive lifting. Physical Therapy Plan Frequency and Duration Frequency of Treatment 1-2x/wk Duration of treatment (weeks) 8 Plan of Care Start Date 03/15/25 Plan of Care End Date 05/16/25 Therapeutic Interventions Therapeutic Interventions Balance Training,Canalithic Repositioning,Home Exercise Program,Joint Mobilizations, Manual Therapy,Neuromuscular Re-education,Patient/Caregiver Education,Self-Care/Home Management,Soft Tissue Mobilization,Taping, Therapeutic Activities, Therapeutic Exercises Modalities Cold Pack/Ice Massage,Electric Stimulation,Hot Packs, Iontophoresis Next Visit Focus/Plan Next Note Type Treatment Note Next Visit Plan Review pelvic realignment exercises and initiate manual work Next, initiate flexibility exercises for hips, LEs and thoracic spine Next core, balance and LE strengthening progression Next lifting, body mechanics techniques
--- NOTE | 2025-03-15 16:31 | PT.OPPOC ---
Physical, Occupational & Speech Therapy At [facility] Current Diagnoses Low back pain, unspecified (03/15/25) Visit Care Team Role Provider Type APOLLO Mcwilliams Attending Provider Non-Staff Family Provider Primary Care Provider Referring Provider Specialty: Nursing Address: [address] [place] [address], [id number] Email: Plan Of Care PT-OP-B Current Condition Start: 03/14/25 17:29 Freq: Status: Active Protocol: Document 03/15/25 07:34 MB (Rec: 03/15/25 08:14 MB Desktop) Current Condition History of Current Condition Onset Date 08/30/24 Current Complaints Severe LBP that is intermittent History of Current Condition Pt was moving the end of August and he slipped when using tiff up the steps and he hurt his back. He lifts repetitively heavy weight for his job at the [employer]. He came to the ED and had diagnostics as below and was given pain medication. He has not been able to lift for exercise since the injury. He has had a change in his previous duties since the injury but does anticipate returning to his previous job by August. Pt has trouble sleeping and he gets back pain flare-ups. Lifting blinds overhead and sneezing caused a flare-up. He has had a few ED visits. Pt reports left lateral distal leg has needles feeling. He has not had legs given way or feeling week. Being upright is better. Stretching helps. Prior Treatments and Tests MRI lumbar spine 08/30/24: Degenerative disc bulge and bilateral facet arthrosis at L4-5 and L5-S1 levels causing various degrees of central canal stenosis and bilateral neural foraminal narrowing as described above. 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 MRI revealed degenerative disc bulge and bilateral facet arthrosis at L4-5 and L5-S1 levels causing various degrees of central canal stenosis and bilateral neural foraminal narrowing. Pt presents with postural changes, left leg weakness, reporting feeling better when up but less pain with forward flexion than with lumbar extension in standing and SI stiffness. He will benefit from PT to improve alignment, flexibility, myofascial motility, pain, core and LE strengthening, balance and body mechanics/ ergonomics. He thinks he will return to his previous duties in 08/25 that include heavy and repetitive lifting. Physical Therapy Plan Frequency and Duration Frequency of Treatment 1-2x/wk Duration of treatment (weeks) 8 Plan of Care Start Date 03/15/25 Plan of Care End Date 05/16/25 Therapeutic Interventions Therapeutic Interventions Balance Training,Canalithic Repositioning,Home Exercise Program,Joint Mobilizations, Manual Therapy,Neuromuscular Re-education,Patient/Caregiver Education,Self-Care/Home Management,Soft Tissue Mobilization,Taping, Therapeutic Activities, Therapeutic Exercises Modalities Cold Pack/Ice Massage,Electric Stimulation,Hot Packs, Iontophoresis Next Visit Focus/Plan Next Note Type Treatment Note Next Visit Plan Review pelvic realignment exercises and initiate manual work Next, initiate flexibility exercises for hips, LEs and thoracic spine Next core, balance and LE strengthening progression Next lifting, body mechanics techniques Plan of Care Dates Plan of Care Start Date 03/15/25 Plan of Care End Date 05/16/25 Electronically Signed by: Minnie Sutton PT 03/15/25 [id number] If you are in agreement with this Plan of Care, please return a signed and dated copy. I have reviewed this Plan of Care and certify that the skilled therapy services above are required to meet the patient?s needs. Physician Signature Date Printed Name and Credentials Clinical Instructor Signature Printed Name and Credentials
--- NOTE | 2025-03-22 08:13 | PT.OTN ---
Current Diagnoses Low back pain, unspecified (03/22/25) Physical Therapy Treatment Note PT-OP-A Visit Information Start: 03/14/25 17:29 Freq: Status: Active Protocol: Document 03/22/25 07:30 MB (Rec: 03/22/25 08:13 MB Desktop) Out-Patient Physical Therapy Visit Information Visit Information Visit Type Treatment Note Visit Note Prog note by 04/14/25 Visit Start Time 07:30 Visit Stop Time 08:10 Visit Number 2 Number of FACILITY SPECIALIST Visits 0 Evaluation Information Evaluation Date 03/15/25 PT-OP-B Current Condition Start: 03/14/25 17:29 Freq: Status: Active Protocol: Document 03/15/25 07:34 MB (Rec: 03/15/25 08:14 MB Desktop) Current Condition History of Current Condition Onset Date 08/30/24 Current Complaints Severe LBP that is intermittent History of Current Condition Pt was moving the end of August and he slipped when using tiff up the steps and he hurt his back. He lifts repetitively heavy weight for his job at the [employer]. He came to the ED and had diagnostics as below and was given pain medication. He has not been able to lift for exercise since the injury. He has had a change in his previous duties since the injury but does anticipate returning to his previous job by August. Pt has trouble sleeping and he gets back pain flare-ups. Lifting blinds overhead and sneezing caused a flare-up. He has had a few ED visits. Pt reports left lateral distal leg has needles feeling. He has not had legs given way or feeling week. Being upright is better. Stretching helps. Prior Treatments and Tests MRI lumbar spine 08/30/24: Degenerative disc bulge and bilateral facet arthrosis at L4-5 and L5-S1 levels causing various degrees of central canal stenosis and bilateral neural foraminal narrowing as described above. Treatment Goals Patient/Caregiver Goals To decrease pain PT-OP-C Subjective Start: 03/14/25 17:29 Freq: Status: Active Protocol: Document 03/22/25 07:30 MB (Rec: 03/22/25 08:13 MB Desktop) OP-PT Subjective Patient Comments Patient Comments No new reports, pelvic alignment exercises are going okay. PT-OP-J Posture/Palpation/Skin Start: 03/14/25 17:29 Freq: Status: Active Protocol: Document 03/15/25 07:34 MB (Rec: 03/15/25 08:14 MB Desktop) Posture Evaluation Comments Posture Comments Gait pattern in socks: slow and decreased arms swing and stiffness at low back with gait Posture in standing in socks: forward head and rounded shoulders, left scapula is lower and less muscular than right scapular area and shoulder, right scapula mildly higher and forward than the left, pt is right handed, right iliac crest mildly higher than the left, increased mid foot overpronation, worse on the right. Repeated forward flexion: pain in LB only and fingertips 6 from the floor; repeated flexion pain the same and he can reach to feet last rep Repeated lumbar extension: 10 deg and repeated extension is bothersome SB in standing: B stiffness, more symptoms right SI area with left SB and pt moves about 15 deg both directions B Slump negative PT-OP-M Strength Start: 03/14/25 17:29 Freq: Status: Active Protocol: Document 03/15/25 07:34 MB (Rec: 03/15/25 08:14 MB Desktop) Hip Strength Hip Manual Muscle Testing Left Flexion (L2) 4+ Good+ Extension (S1) 4 Good Abduction 4+ Good+ Right Flexion (L2) 5 Normal Extension (S1) 5 Normal Abduction 5 Normal Comments B passive SLR about 45 deg L SI joint is stiffer than the right Knee Strength Knee Manual Muscle Testing Left Flexion (S2) 5 Normal Extension (L3) 5 Normal Right Flexion (S2) 5 Normal Extension (L3) 5 Normal Ankle/Foot Strength Ankle and Foot Manual Muscle Testing Left Dorsiflexion (L4) 5 Normal Right Dorsiflexion (L4) 5 Normal Toe Strength Toe Manual Muscle Testing Left Great Toe Flexion 5 Normal Right Great Toe Flexion 5 Normal PT-OP-Q Treatments Start: 03/14/25 17:29 Freq: Status: Active Protocol: Document 03/22/25 07:30 MB (Rec: 03/22/25 08:13 MB Desktop) Therapeutic Exercises Supine Exercises Hip rotator stretch Supine Exercise Name HEP and handout today Side bilateral Reps/Minutes 30 sec each leg Pelvic realignment exercises Supine Exercise Name Reviewed from HEP Side bilateral Equipment Used Blue ball Reps/Minutes 5 reps, 3 sec hold all exercises in order Comments Feet together ball squeeze iso , knee opp ankle iso, thigh press down iso Standing Exercises Doorway stretches Standing Exercise Name HEP and handout provided Side bilateral Reps/Minutes All each side Comments Pect stretch, hip flexor stretch, QL and rib stretch Manual Therapy Treatment Consent Patient gave verbal consent for manual Yes treatment Other Other Manual Treatments Pt in B side lying: B rib recoil muscle energy technique for rib mobility and QL loosening as well as paraspinal mobility, STM B glutes, hip rotators, vastus lateralis, hamstrings, TFLs PT-OP-T Assessment and Plan Start: 03/14/25 17:29 Freq: Status: Active Protocol: Document 03/22/25 07:30 MB (Rec: 03/22/25 08:13 MB Desktop) Physical Therapy Assessment Rehab Potential Rehabilitation Potential Fair Evaluation Complexity Number of Personal Factors/Comorbidities 1-2 Number of Body Systems Impaired 1-2 Clinical Presentation at Evaluation Evolving Impairments Impairments Gait,Pain,Posture,ROM,Soft Tissue Mobility,Strength Assessment Summary Assessment Initiated manual work and flexibility exercises today. Pt has increased rib/thoracic tension as well as tight hip rotators and worked on today as far as manual work and flexibility exercises. Initiated discussion about abdominal drawing in in standing: pubic bone to navel. Physical Therapy Plan Frequency and Duration Frequency of Treatment 1-2x/wk Duration of treatment (weeks) 8 Plan of Care Start Date 03/15/25 Plan of Care End Date 05/16/25 Therapeutic Interventions Therapeutic Interventions Balance Training,Canalithic Repositioning,Home Exercise Program,Joint Mobilizations, Manual Therapy,Neuromuscular Re-education,Patient/Caregiver Education,Self-Care/Home Management,Soft Tissue Mobilization,Taping, Therapeutic Activities, Therapeutic Exercises Modalities Cold Pack/Ice Massage,Electric Stimulation,Hot Packs, Iontophoresis Next Visit Focus/Plan Next Note Type Treatment Note Next Visit Plan Con't manual work and review flexibility exercises as needed Next core, balance and LE strengthening progression Next lifting, body mechanics techniques
--- NOTE | 2025-03-29 08:09 | PT.OPPOC ---
Physical, Occupational & Speech Therapy At [facility] Current Diagnoses Low back pain, unspecified (03/29/25) Visit Care Team Role Provider Type APOLLO Mcwilliams Attending Provider Non-Staff Family Provider Primary Care Provider Referring Provider Specialty: Nursing Address: [address] [place] [address], [id number] Email: Plan Of Care PT-OP-B Current Condition Start: 03/14/25 17:29 Freq: Status: Active Protocol: Document 03/15/25 07:34 MB (Rec: 03/15/25 08:14 MB Desktop) Current Condition History of Current Condition Onset Date 08/30/24 Current Complaints Severe LBP that is intermittent History of Current Condition Pt was moving the end of August and he slipped when using tiff up the steps and he hurt his back. He lifts repetitively heavy weight for his job at the [employer]. He came to the ED and had diagnostics as below and was given pain medication. He has not been able to lift for exercise since the injury. He has had a change in his previous duties since the injury but does anticipate returning to his previous job by August. Pt has trouble sleeping and he gets back pain flare-ups. Lifting blinds overhead and sneezing caused a flare-up. He has had a few ED visits. Pt reports left lateral distal leg has needles feeling. He has not had legs given way or feeling week. Being upright is better. Stretching helps. Prior Treatments and Tests MRI lumbar spine 08/30/24: Degenerative disc bulge and bilateral facet arthrosis at L4-5 and L5-S1 levels causing various degrees of central canal stenosis and bilateral neural foraminal narrowing as described above. Treatment Goals Patient/Caregiver Goals To decrease pain PT-OP-T Assessment and Plan Start: 03/14/25 17:29 Freq: Status: Active Protocol: Document 03/29/25 08:05 MB (Rec: 03/29/25 08:09 MB Desktop) Physical Therapy Assessment Rehab Potential Rehabilitation Potential Fair Evaluation Complexity Number of Personal Factors/Comorbidities 1-2 Number of Body Systems Impaired 1-2 Clinical Presentation at Evaluation Evolving Impairments Impairments Gait,Pain,Posture,ROM,Soft Tissue Mobility,Strength Goals 2 Impairment Lack of HEP Public Service Representative Goal (LTG) Pt will perform progressive HEP with I including alignment , flexibility, strengthening and balance. LTG Duration 8 weeks 1 Impairment Oswestry score reflects 26% impairment Longterm Goal (LTG) Pt will present with Oswestry score reflecting no more than 5% impairment to improve pain and quality of life. LTG Duration 8 weeks Assessment Summary Assessment Initiated manual work and flexibility exercises today. Pt has increased rib/thoracic tension as well as tight hip rotators and worked on today as far as manual work and flexibility exercises. Initiated discussion about abdominal drawing in in standing: pubic bone to navel. Physical Therapy Plan Frequency and Duration Frequency of Treatment 1-2x/wk Duration of treatment (weeks) 8 Plan of Care Start Date 03/15/25 Plan of Care End Date 05/16/25 Therapeutic Interventions Therapeutic Interventions Balance Training,Canalithic Repositioning,Home Exercise Program,Joint Mobilizations, Manual Therapy,Neuromuscular Re-education,Patient/Caregiver Education,Self-Care/Home Management,Soft Tissue Mobilization,Taping, Therapeutic Activities, Therapeutic Exercises Modalities Cold Pack/Ice Massage,Electric Stimulation,Hot Packs, Iontophoresis Next Visit Focus/Plan Next Note Type Treatment Note Next Visit Plan Con't manual work and review flexibility exercises as needed Next core, balance and LE strengthening progression Next lifting, body mechanics techniques Plan of Care Dates Plan of Care Start Date 03/15/25 Plan of Care End Date 05/16/25 Electronically Signed by: Minnie Sutton PT 03/29/25 0809 If you are in agreement with this Plan of Care, please return a signed and dated copy. I have reviewed this Plan of Care and certify that the skilled therapy services above are required to meet the patient?s needs. Physician Signature Date Printed Name and Credentials Clinical Instructor Signature Printed Name and Credentials
--- NOTE | 2025-03-29 10:42 | PT.OTN ---
Current Diagnoses Low back pain, unspecified (03/29/25) Physical Therapy Treatment Note PT-OP-A Visit Information Start: 03/14/25 17:29 Freq: Status: Active Protocol: Document 03/29/25 07:24 AB (Rec: 03/29/25 10:40 AB Laptop) Out-Patient Physical Therapy Visit Information Visit Information Visit Type Treatment Note Visit Note Prog note by 04/14/25 Visit Start Time 07:34 Visit Stop Time 08:17 Visit Number 3 Number of CLINIC LEAD Visits 1 Evaluation Information Evaluation Date 03/15/25 PT-OP-B Current Condition Start: 03/14/25 17:29 Freq: Status: Active Protocol: Document 03/15/25 07:34 MB (Rec: 03/15/25 08:14 MB Desktop) Current Condition History of Current Condition Onset Date 08/30/24 Current Complaints Severe LBP that is intermittent History of Current Condition Pt was moving the end of August and he slipped when using tiff up the steps and he hurt his back. He lifts repetitively heavy weight for his job at the [employer]. He came to the ED and had diagnostics as below and was given pain medication. He has not been able to lift for exercise since the injury. He has had a change in his previous duties since the injury but does anticipate returning to his previous job by August. Pt has trouble sleeping and he gets back pain flare-ups. Lifting blinds overhead and sneezing caused a flare-up. He has had a few ED visits. Pt reports left lateral distal leg has needles feeling. He has not had legs given way or feeling week. Being upright is better. Stretching helps. Prior Treatments and Tests MRI lumbar spine 08/30/24: Degenerative disc bulge and bilateral facet arthrosis at L4-5 and L5-S1 levels causing various degrees of central canal stenosis and bilateral neural foraminal narrowing as described above. Treatment Goals Patient/Caregiver Goals To decrease pain PT-OP-C Subjective Start: 03/14/25 17:29 Freq: Status: Active Protocol: Document 03/29/25 07:24 AB (Rec: 03/29/25 10:40 AB Laptop) OP-PT Subjective Patient Comments Patient Comments Patient reports he is the same . 4/10 R greater than L back pain start of session. PT-OP-J Posture/Palpation/Skin Start: 03/14/25 17:29 Freq: Status: Active Protocol: Document 03/15/25 07:34 MB (Rec: 03/15/25 08:14 MB Desktop) Posture Evaluation Comments Posture Comments Gait pattern in socks: slow and decreased arms swing and stiffness at low back with gait Posture in standing in socks: forward head and rounded shoulders, left scapula is lower and less muscular than right scapular area and shoulder, right scapula mildly higher and forward than the left, pt is right handed, right iliac crest mildly higher than the left, increased mid foot overpronation, worse on the right. Repeated forward flexion: pain in LB only and fingertips 6 from the floor; repeated flexion pain the same and he can reach to feet last rep Repeated lumbar extension: 10 deg and repeated extension is bothersome SB in standing: B stiffness, more symptoms right SI area with left SB and pt moves about 15 deg both directions B Slump negative PT-OP-M Strength Start: 03/14/25 17:29 Freq: Status: Active Protocol: Document 03/15/25 07:34 MB (Rec: 03/15/25 08:14 MB Desktop) Hip Strength Hip Manual Muscle Testing Left Flexion (L2) 4+ Good+ Extension (S1) 4 Good Abduction 4+ Good+ Right Flexion (L2) 5 Normal Extension (S1) 5 Normal Abduction 5 Normal Comments B passive SLR about 45 deg L SI joint is stiffer than the right Knee Strength Knee Manual Muscle Testing Left Flexion (S2) 5 Normal Extension (L3) 5 Normal Right Flexion (S2) 5 Normal Extension (L3) 5 Normal Ankle/Foot Strength Ankle and Foot Manual Muscle Testing Left Dorsiflexion (L4) 5 Normal Right Dorsiflexion (L4) 5 Normal Toe Strength Toe Manual Muscle Testing Left Great Toe Flexion 5 Normal Right Great Toe Flexion 5 Normal PT-OP-Q Treatments Start: 03/14/25 17:29 Freq: Status: Active Protocol: Document 03/29/25 07:24 AB (Rec: 03/29/25 10:40 AB Laptop) Therapeutic Exercises Supine Exercises Modified [place] stretch Supine Exercise Name HEP Side bilateral Reps/Minutes 60 seconds each LE Comments verbal cues chin tuck head lift Supine Exercise Name for Mc Russell big 3 HEP Reps/Minutes 7 seconds X 10 Comments verbal and visual cues Hip rotator stretch Supine Exercise Name HEP Review figure 4 then piriformis HEP Side bilateral Reps/Minutes 30 sec each leg Comments verbal and tactile cues for piriformis Pelvic realignment exercises Supine Exercise Name Reviewed from HEP post STM and stretches Side bilateral Equipment Used Blue ball Reps/Minutes 5 reps, 3 sec hold all exercises in order Comments Feet together ball squeeze iso , knee opp ankle iso, thigh press down iso Sidelying Exercises side plank Sidelying Exercise Name HEP Reps/Minutes 7 seconds X 10 Comments verbal cues Sitting Exercises seated core warm u Sitting Exercise Name 1. shoulder flexion 2. seated trunk rotation Side bilateral Equipment Used core warm up Reps/Minutes 5 X 5 Comments verbal and visual cues Standing Exercises Bird Dog Standing Exercise Name for Mc Russell big 3 HEP Side bilateral Reps/Minutes X10 7 seconds Comments verbal cues Manual Therapy Treatment Consent Patient gave verbal consent for manual Yes treatment Soft Tissue Mobilization Lumbar paraspinals, quadratus L, glute/piriformis Body Location bilateral Mobilization Type Cross-Friction,Rolling, Sustained Pressure Intensity/Depth Moderate Body Position Sidelying PT-OP-T Assessment and Plan Start: 03/14/25 17:29 Freq: Status: Active Protocol: Document 03/29/25 08:05 MB (Rec: 03/29/25 08:09 MB Desktop) Physical Therapy Assessment Rehab Potential Rehabilitation Potential Fair Evaluation Complexity Number of Personal Factors/Comorbidities 1-2 Number of Body Systems Impaired 1-2 Clinical Presentation at Evaluation Evolving Impairments Impairments Gait,Pain,Posture,ROM,Soft Tissue Mobility,Strength Goals 2 Impairment Lack of HEP Catering Service Manager Goal (LTG) Pt will perform progressive HEP with I including alignment , flexibility, strengthening and balance. LTG Duration 8 weeks 1 Impairment Oswestry score reflects 26% impairment Catering Service Manager Goal (LTG) Pt will present with Oswestry score reflecting no more than 5% impairment to improve pain and quality of life. LTG Duration 8 weeks Assessment Summary Assessment Initiated manual work and flexibility exercises today. Pt has increased rib/thoracic tension as well as tight hip rotators and worked on today as far as manual work and flexibility exercises. Initiated discussion about abdominal drawing in in standing: pubic bone to navel. Physical Therapy Plan Frequency and Duration Frequency of Treatment 1-2x/wk Duration of treatment (weeks) 8 Plan of Care Start Date 03/15/25 Plan of Care End Date 05/16/25 Therapeutic Interventions Therapeutic Interventions Balance Training,Canalithic Repositioning,Home Exercise Program,Joint Mobilizations, Manual Therapy,Neuromuscular Re-education,Patient/Caregiver Education,Self-Care/Home Management,Soft Tissue Mobilization,Taping, Therapeutic Activities, Therapeutic Exercises Modalities Cold Pack/Ice Massage,Electric Stimulation,Hot Packs, Iontophoresis Next Visit Focus/Plan Next Note Type Treatment Note Next Visit Plan Con't manual work and review flexibility exercises as needed Next core, balance and LE strengthening progression Next lifting, body mechanics techniques
--- NOTE | 2025-04-12 08:13 | PT.OTN ---
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 He lifts repetitively heavy weight for his job at the [employer]. He came to the ED and had diagnostics as below and was given pain medication. He has not been able to lift for exercise since the injury. He has had a change in his previous duties since the injury but does anticipate returning to his previous job by August. Pt has trouble sleeping and he gets back pain flare-ups. Lifting blinds overhead and sneezing caused a flare-up. He has had a few ED visits. Pt reports left lateral distal leg has needles feeling. He has not had legs given way or feeling week. Being upright is better. Stretching helps. Prior Treatments and Tests MRI lumbar spine 08/30/24: Degenerative disc bulge and bilateral facet arthrosis at L4-5 and L5-S1 levels causing various degrees of central canal stenosis and bilateral neural foraminal narrowing as described above. Treatment Goals Patient/Caregiver Goals To decrease pain PT-OP-C Subjective Start: 03/14/25 17:29 Freq: Status: Active Protocol: Document 04/12/25 07:34 MB (Rec: 04/12/25 08:13 MB Desktop) OP-PT Subjective Patient Comments Patient Comments Pt canceled last week's appointment since he had bad back spasms that started when lifting small dog. No other news. Pt is doing a lot of walking and work has been fine . Pt took 1/2 muscle relaxer every night. Pt is scheduled to see back doctor end of May . PT-OP-J Posture/Palpation/Skin Start: 03/14/25 17:29 Freq: Status: Active Protocol: Document 03/15/25 07:34 MB (Rec: 03/15/25 08:14 MB Desktop) Posture Evaluation Comments Posture Comments Gait pattern in socks: slow and decreased arms swing and stiffness at low back with gait Posture in standing in socks: forward head and rounded shoulders, left scapula is lower and less muscular than right scapular area and shoulder, right scapula mildly higher and forward than the left, pt is right handed, right iliac crest mildly higher than the left, increased mid foot overpronation, worse on the right. Repeated forward flexion: pain in LB only and fingertips 6 from the floor; repeated flexion pain the same and he can reach to feet last rep Repeated lumbar extension: 10 deg and repeated extension is bothersome SB in standing: B stiffness, more symptoms right SI area with left SB and pt moves about 15 deg both directions B Slump negative PT-OP-M Strength Start: 03/14/25 17:29 Freq: Status: Active Protocol: Document 03/15/25 07:34 MB (Rec: 03/15/25 08:14 MB Desktop) Hip Strength Hip Manual Muscle Testing Left Flexion (L2) 4+ Good+ Extension (S1) 4 Good Abduction 4+ Good+ Right Flexion (L2) 5 Normal Extension (S1) 5 Normal Abduction 5 Normal Comments B passive SLR about 45 deg L SI joint is stiffer than the right Knee Strength Knee Manual Muscle Testing Left Flexion (S2) 5 Normal Extension (L3) 5 Normal Right Flexion (S2) 5 Normal Extension (L3) 5 Normal Ankle/Foot Strength Ankle and Foot Manual Muscle Testing Left Dorsiflexion (L4) 5 Normal Right Dorsiflexion (L4) 5 Normal Toe Strength Toe Manual Muscle Testing Left Great Toe Flexion 5 Normal Right Great Toe Flexion 5 Normal PT-OP-Q Treatments Start: 03/14/25 17:29 Freq: Status: Active Protocol: Document 04/12/25 07:34 MB (Rec: 04/12/25 08:13 MB Desktop) Therapeutic Exercises Sidelying Exercises Open book Sidelying Exercise Name HEP and handout provided today Side bilateral Equipment Used 6 foam roller between legs, pillow under head Reps/Minutes Many reps each side Manual Therapy Treatment Consent Patient gave verbal consent for manual Yes treatment Other Other Manual Treatments Pt in B side lying: B rib recoil muscle energy technique for rib mobility and QL loosening as well as paraspinal mobility, STM B glutes, hip rotators, vastus lateralis, hamstrings, TFLs Self-Care/Home Management Treatment Education Patient Education Body Mechanics,Fall Risk,Home Exercise Program,Joint Protection,Pain Management, Posture Caregiver Education Ongoing ed and encouragement about alignment exercises, abdominal drawing in, hydration, gentle flexibility, body mechanics, scheduling more PT appointments given 2 week break and hoping to make some head way towards goals, practiced log rolling PT-OP-T Assessment and Plan Start: 03/14/25 17:29 Freq: Status: Active Protocol: Document 04/12/25 07:34 MB (Rec: 04/12/25 08:13 MB Desktop) Physical Therapy Assessment Rehab Potential Rehabilitation Potential Fair Evaluation Complexity Number of Personal Factors/Comorbidities 1-2 Number of Body Systems Impaired 1-2 Clinical Presentation at Evaluation Evolving Impairments Impairments Gait,Pain,Posture,ROM,Soft Tissue Mobility,Strength Goals 2 Impairment Lack of HEP Electric Crane Operator Goal (LTG) Pt will perform progressive HEP with I including alignment , flexibility, strengthening and balance. 04/12/25: Pt states that he is performing HEP exercises as able LTG Duration 8 weeks 1 Impairment Oswestry score reflects 26% impairment Electric Crane Operator Goal (LTG) Pt will present with Oswestry score reflecting no more than 5% impairment to improve pain and quality of life. 04/12/25: Oswestry score reflects 30% impairment, which is slightly higher than eval date LTG Duration 8 weeks Assessment Summary Assessment Pt with ongoing left sided pain and right paraspinals and lats also very tight as well as tight B QL today. Pt has not progressed much towards PT goals at this point but this is only his 5th treatment in a month, with two weeks of no treatment. Con't to progress and monitor as able. Physical Therapy Plan Frequency and Duration Frequency of Treatment 1-2x/wk Duration of treatment (weeks) 8 Plan of Care Start Date 03/15/25 Plan of Care End Date 05/16/25 Therapeutic Interventions Therapeutic Interventions Balance Training,Canalithic Repositioning,Home Exercise Program,Joint Mobilizations, Manual Therapy,Neuromuscular Re-education,Patient/Caregiver Education,Self-Care/Home Management,Soft Tissue Mobilization,Taping, Therapeutic Activities, Therapeutic Exercises Modalities Cold Pack/Ice Massage,Electric Stimulation,Hot Packs, Iontophoresis Next Visit Focus/Plan Next Note Type Treatment Note Next Visit Plan Manual work and review flexibility exercises as needed, progress HEP--thoracic activities like possible thread the needle or child's pose Next core, balance and LE strengthening progression Next lifting, body mechanics techniques
--- NOTE | 2025-04-19 07:42 | PT-OP ANOTE ---
Pt does not show up for appointment. PT leaves message about no show cancellation policy and possible fee. PT leaves message about next scheduled appointment, which is 04/26 at 1345.
--- NOTE | 2025-05-02 16:24 | PT-OP ANOTE ---
Pt cancelled tomorrow's appointment. He has cancelled or no showed the last three PT appointments (only one no show). If he no shows again, will d/c PT. Will also consider d/cing PT if he cancels his appointment on 05/05/25.
--- NOTE | 2025-05-11 08:29 | PT.OPDS ---
Current Diagnoses Low back pain, unspecified (04/12/25) Visit Care Team Role Provider Type APOLLO Mcwilliams Attending Provider Non-Staff Family Provider Primary Care Provider Referring Provider Specialty: Nursing [address]: [address] [place] [address], [id number] Email: Visit Number Visit Number 4 Discharge Summary PT-OP-B Current Condition Start: 03/14/25 17:29 Freq: Status: Active Protocol: Document 03/15/25 07:34 MB (Rec: 03/15/25 08:14 MB Desktop) Current Condition History of Current Condition Onset Date 08/30/24 Current Complaints Severe LBP that is intermittent History of Current Pt was moving the end of August and he slipped when Condition using tiff up the steps and he hurt his back. He lifts repetitively heavy weight for his job at the [employer]. He came to the ED and had diagnostics as below and was given pain medication. He has not been able to lift for exercise since the injury. He has had a change in his previous duties since the injury but does anticipate returning to his previous job by August. Pt has trouble sleeping and he gets back pain flare-ups . Lifting blinds overhead and sneezing caused a flare- up. He has had a few ED visits. Pt reports left lateral distal leg has needles feeling. He has not had legs given way or feeling week. Being upright is better. Stretching helps. Prior Treatments and MRI lumbar spine 08/30/24: Degenerative disc bulge and Tests bilateral facet arthrosis at L4-5 and L5-S1 levels causing various degrees of central canal stenosis and bilateral neural foraminal narrowing as described above. Treatment Goals Patient/Caregiver To decrease pain Goals PT-OP-C Subjective Start: 03/14/25 17:29 Freq: Status: Active Protocol: Document 04/12/25 07:34 MB (Rec: 04/12/25 08:13 MB Desktop) OP-PT Subjective Patient Comments Patient Comments Pt canceled last week's appointment since he had bad back spasms that started when lifting small dog. No other news. Pt is doing a lot of walking and work has been fine. Pt took 1/2 muscle relaxer every night. Pt is scheduled to see back doctor end of May. PT-OP-J Posture/Palpation/Skin Start: 03/14/25 17:29 Freq: Status: Active Protocol: Document 03/15/25 07:34 MB (Rec: 03/15/25 08:14 MB Desktop) Posture Evaluation Comments Posture Comments Gait pattern in socks: slow and decreased arms swing and stiffness at low back with gait Posture in standing in socks: forward head and rounded shoulders, left scapula is lower and less muscular than right scapular area and shoulder, right scapula mildly higher and forward than the left, pt is right handed, right iliac crest mildly higher than the left, increased mid foot overpronation, worse on the right. Repeated forward flexion: pain in LB only and fingertips 6 from the floor; repeated flexion pain the same and he can reach to feet last rep Repeated lumbar extension: 10 deg and repeated extension is bothersome SB in standing: B stiffness, more symptoms right SI area with left SB and pt moves about 15 deg both directions B Slump negative PT-OP-M Strength Start: 03/14/25 17:29 Freq: Status: Active Protocol: Document 03/15/25 07:34 MB (Rec: 03/15/25 08:14 MB Desktop) Hip Strength Hip Manual Muscle Testing Left Flexion (L2) 4+ Good+ Extension (S1) 4 Good Abduction 4+ Good+ Right Flexion (L2) 5 Normal Extension (S1) 5 Normal Abduction 5 Normal Comments B passive SLR about 45 deg L SI joint is stiffer than the right Knee Strength Knee Manual Muscle Testing Left Flexion (S2) 5 Normal Extension (L3) 5 Normal Right Flexion (S2) 5 Normal Extension (L3) 5 Normal Ankle/Foot Strength Ankle and Foot Manual Muscle Testing Left Dorsiflexion (L4) 5 Normal Right Dorsiflexion (L4) 5 Normal Toe Strength Toe Manual Muscle Testing Left Great Toe Flexion 5 Normal Right Great Toe Flexion 5 Normal PT-OP-T Assessment and Plan Start: 03/14/25 17:29 Freq: Status: Active Protocol: Document 05/11/25 08:26 MB (Rec: 05/11/25 08:29 MB Desktop) Physical Therapy Assessment Assessment Summary Assessment Pt has not been seen in 29 days. He has no showed one appointment and canceled a couple of others. Today's appointment was canceled. Left pt a message and will d/ c PT and cancel remaining appointments.
== END 2025-05-13 12:40 | disposition home or self-care (01) ==
LOC: PHYS 07:30
PROVIDERS: Family Provider Nurse Practitioner Family; PCP Nurse Practitioner Family; Referring Provider Nurse Practitioner Family; Visit Provider Nurse Practitioner Family
DX: M54.50 Low back pain, unspecified (principal)
CPT/HCPCS: 97110; 97140; 97161; 97535

== ENCOUNTER 2025-05-29 15:12 | Emergency (ER) | payer OTHER, SELFPAY ==
[2025-05-29 15:19] VITALS: BP 153/101; PULSE 101; RESP 18; TEMP 36.6; O2SAT 95; BMI 31.1
--- NOTE | 2025-05-29 15:32 | ED_ITS ---
HPI - Nausea/Vomiting/Diarrhea <Chela Jacobson PA-C - Last Filed: 05/29/25 17:51> General Chief complaint: Nausea/Vomiting/Diarrhea Stated complaint: N/V,/D, Headaches Time Seen by Provider: 05/29/25 15:31 Source: patient Mode of arrival: Ambulatory History of Present Illness HPI Narrative: 34-year-old male presents with chief complaint of nausea vomiting and diarrhea. His 1st episode occurred about 5 days ago he described vomiting food product, and then experiencing watery stools the next day as well as a recurrence of his vomiting. At no time has he described any recent illness, no fever, chills, cough, body aches, or joint pains. His illness proceeded with what he described as a ?migraine headache that began on Friday and lasted for 3 days?. He had sensitivity to light but no changes in his vision or any other neurologic symptoms, neck pain or stiffness, issues with balance or weakness, that did resolve with the acetaminophen and staying in a dark room, he states that headache ?came out of no where but again completely resolved. He did go to work this week, he states his sister is a nurse and was able to give him 2 L IV infusion yesterday with ?vitamins?. He states he felt much better afterwards but again symptoms returned this morning and he felt as if he was ?back [place]?. He reports a little bit of abdominal discomfort he points to his epigastrium he describes it as a ?warm feeling, he reports no sour taste or increased belching but he did try a Nexium with no significant improvement. Pain does not radiate through to the back. At no time has he described any difficulty breathing or chest pain. He states when he woke this morning he did feel hungry, he had 2 glasses of water and oatmeal with jaime seeds that he kept down. He also reports a normal-appearing bowel movement today. Urination has also been normal. No back or flank pain. He does endorse eating a lot of fish lately, and is concerned about the possibility of heavy metals. He denies any fish bones. 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 Family history is significant for GERD, no known gall bladder disease. Lastly he does endorse having some postnasal drainage over the last month and he has been using Afrin since that time twice daily. He just started in [employer] so he can try to wean himself from the Afrin but otherwise no other URI symptoms. No facial pain or swelling, no ear complaints. All other systems reviewed and are negative. Related Data Previous Rx's ?Medication ?Instructions ?Recorded cyclobenzaprine 5 mg tablet 5 mg PO TID PRN muscle spa sm #10 07/29/23 tabs hydrocodone 5 mg-acetaminophen 325 1 tab PO Q6H PRN pa in #10 tabs 07/29/23 mg tablet cyclobenzaprine 10 mg tablet 10 mg PO TID PRN muscle s pasm #14 09/03/23 tabs hydrocodone 5 mg-acetaminophen 325 1 tab PO Q4-6H PRN pain #10 tabs 09/03/23 mg tablet ketorolac 10 mg tablet 10 mg PO Q6H PRN pain #14 ta bs 09/03/23 lidocaine 5 % topical patch 1 patch topical DAILY #15 ea 09/03/23 (Lidoderm) diazepam 5 mg tablet (Valium) 5 mg PO BEDTIME PRN musc le spasm 07/21/24 #5 tabs cyclobenzaprine 10 mg tablet 10 mg PO TID PRN muscle s pasm #15 08/30/24 tabs methylprednisolone 4 mg tablets in See Rx Instructions PO .COMPLEX 08/30/24 a dose pack (Medrol (Toby)) #21 ea ondansetron 4 mg disintegrating 4 mg PO Q8H #10 tabs 0 05/29/25 tablet Allergies Allergy/AdvReac Type Severity Reaction Status Date / Time No Known Drug Allergies Allergy Verified 05/29/25 15:19 Review of Systems <Chela Jacobson PA-C - Last Filed: 05/29/25 17:51> Review of Systems Narrative: All other systems reviewed and are negative. Patient History <Chela Jacobson PA-C - Last Filed: 05/29/25 17:51> Social History Smoking Status: Never smoker Smoking Status: Never smoker alcohol intake frequency: holidays/special occasions only Exam <Chela Jacobson PA-C - Last Filed: 05/29/25 17:51> Initial Vital Signs Initial Vital Signs: Vital Signs Temperature 97.8 F 05/29/25 15:19 Pulse Rate 101 H 05/29/25 15:19 Respiratory Rate 18 05/29/25 15:19 Blood Pressure 153/101 H 05/29/25 15:19 Pulse Oximetry 95 05/29/25 15:19 Oxygen Delivery Method Room Air 05/29/25 15:19 Reviewed, noted initial elevated BP reading and HR 101. Const General: cooperative, healthy appearing, comfortable and No acute distress Other: Athletic appearing, ambulatory, pleasantly conversing, no distress. Speech is clear. Work of breathing is normal. [facility] Ears: hearing grossly normal bilaterally, external ears normal, TM's normal bilaterally, EAC's normal and mastoids normal Nose: external nose normal and mucous membranes and turbinates abnormal (Reddened, thickened tissue, clear mucus, no polyps. No bleeding points.) Face and sinus: normal facial exam, sinuses nontender and face symmetric Mouth: oral mucosae normal, lip normal, tongue normal, oropharynx normal and No muffled voice Teeth and gingiva: dentition normal and gingiva normal Throat: posterior oropharynx normal, tonsils normal, uvula midline and postnasal drainage (Clear, no purulence.) Eyes General: Yes appearance normal, both eyes and all related structures Conjunctivae: conjunctivae normal Pupils: PERRL Neck Neck: normal visual inspection, full ROM and no meningeal signs Chest Chest: normal inspection of the chest Resp Effort & Inspection: normal respiratory effort Auscultation: clear to auscultation bilaterally, no rales, no rhonchi and no wheezes Other: No hoarseness. No pain reproduced with deep inspiration, equal expansion. Cardio Rate: regular rate Rhythm: regular rhythm GI Inspection: normal to inspection, no edema and non-distended Palpation: soft, no hepatosplenomegaly and tender (Mild epigastric point tenderness no guarding or mass.) Percussion: normal to percussion Auscultation: normal bowel sounds Rectal Exam: visual inspection normal, normal sphincter tone and other (Guaiac negative. Light brown minimal stool.) Other: Negative Mcgowan's Sign. Post-op/laparoscopic scars barely visible. Negative CVA tenderness. No mass or guarding. Ambulates normally. No peritoneal signs. Negative navel tugging and heel tap. Back/Spine/Pelvis Back: normal to inspection and No CVA tenderness Skin General: no rashes or lesions noted, elasticity normal and turgor normal Neuro General: patient alert and patient oriented x3 Cranial Nerves: CN's II-XI intact bilaterally Extrem Other: Ambulatory, no acute findings. <Bobbi Cintron MD - Last Filed: 05/30/25 07:10> Initial Vital Signs Initial Vital Signs: Vital Signs Temperature 97.8 F 05/29/25 15:19 Pulse Rate 101 H 05/29/25 15:19 Respiratory Rate 18 05/29/25 15:19 Blood Pressure 153/101 H 05/29/25 15:19 Pulse Oximetry 95 05/29/25 15:19 Oxygen Delivery Method Room Air 05/29/25 15:19 Course <Chela Jacobson PA-C - Last Filed: 05/29/25 17:51> Orders Ordered: Discontinued Medications Sodium Chloride (Normal Saline 0.9%) 1,000 mls @ 1,000 mls/hr IV BOLUS ONE Stop: 05/29/25 16:31 Last Infusion: 05/29/25 16:49 Dose: Infused Documented By: Admin: 05/29/25 15:46 Dose: 1,000 mls/hr Documented By: Ondansetron HCl (Ondansetron 4 Mg/2 Ml Inj) 4 mg IV NOW ONE Stop: 05/29/25 15:33 Last Admin: 05/29/25 15:45 Dose: 4 mg Documented By: Ondansetron HCl (Ondansetron 4 Mg Odt Prepack) 1 bottle MISC DIRECTED ONE Stop: 05/29/25 17:27 Last Admin: 05/29/25 17:34 Dose: 1 bottle Documented By: YUNIER Vital Signs Vital signs: Vital Signs - 8 hr 05/29/25 15:19 05/29/25 17:10 Temperature 97.8 F Pulse Rate 101 H 81 Respiratory Rate 18 18 Blood Pressure 153/101 H 143/91 H Pulse Oximetry 95 97 Oxygen Delivery Method Room Air Nasal Cannula <Bobbi Cintron MD - Last Filed: 05/30/25 07:10> Orders Ordered: Discontinued Medications Sodium Chloride (Normal Saline 0.9%) 1,000 mls @ 1,000 mls/hr IV BOLUS ONE Stop: 05/29/25 16:31 Last Infusion: 05/29/25 16:49 Dose: Infused Documented By: Admin: 05/29/25 15:46 Dose: 1,000 mls/hr Documented By: Ondansetron HCl (Ondansetron 4 Mg/2 Ml Inj) 4 mg IV NOW ONE Stop: 05/29/25 15:33 Last Admin: 05/29/25 15:45 Dose: 4 mg Documented By: Ondansetron HCl (Ondansetron 4 Mg Odt Prepack) 1 bottle MISC DIRECTED ONE Stop: 05/29/25 17:27 Last Admin: 05/29/25 17:34 Dose: 1 bottle Documented By: YUNIER Vital Signs Vital signs: Vital Signs - 8 hr 05/29/25 15:19 05/29/25 17:10 Temperature 97.8 F Pulse Rate 101 H 81 Respiratory Rate 18 18 Blood Pressure 153/101 H 143/91 H Pulse Oximetry 95 97 Oxygen Delivery Method Room Air Nasal Cannula MDM - Nausea/Vomiting/Diarrhea <Chela Jacobson PA-C - Last Filed: 05/29/25 17:51> Lab Data Lab results narrative: CBC, CMP, Lipase are within normal limits. Guaiac NEGATIVE. 05/29/25 15:40 05/29/25 15:40 Labs: Lab Results 05/29/25 05/29/25 Range/Units 15:40 16:55 WBC 10.0 (4.5-11.0) X10^3/uL RBC 6.34 H (4.5-5.9) X10^6/uL Hgb 19.3 H (13.5-17.5) g/dL Hct 55.3 H (41-53) % MCV 87.2 (80-100) fL MCH 30.5 (26-34) PG MCHC 34.9 (30-36) % RDW 14.7 (11.6-14.8) % Plt Count 324 (150-400) X10^3/uL Neut % (Auto) 72.5 (50-75) % Lymph % (Auto) 18.9 L (25-40) % [place] % (Auto) 8.0 (3-14) % Eos % (Auto) 0.2 L (2-4) % Baso % (Auto) 0.4 (0-2) % Neut # (Auto) 7300 H (0967-6114) /uL Lymph # (Auto) 1900 (2129-5124) /uL [place] # (Auto) 800 (0-900) /uL Eos # (Auto) 0 (0-450) /uL Baso # (Auto) 0 (0-100) /uL Sodium 137 (137-145) mmol/L Potassium 4.5 (3.4-5.1) mmol/L Chloride 106 (98-107) mmol/L Carbon Dioxide 24 (22-32) mmol/L BUN 10 (9-20) mg/dL Creatinine 0.92 (0.66-1.25) mg/dL Estimated GFR > 60 (>60) mL/min BUN/Creatinine Ratio 10.9 (6-22) Glucose 109 H (70-99) mg/dL Calcium 9.3 (8.4-10.2) mg/dL Total Bilirubin 0.8 (0.2-1.3) mg/dL AST 48 (17-59) IU/L ALT 47 (<50) IU/L Alkaline Phosphatase 101 (38-126) U/L Total Protein 8.1 (6.3-8.2) g/dL Albumin 4.8 (3.5-5.0) g/dL Globulin 3.3 (1.7-4.1) g/dL Albumin/Globulin Ratio 1.5 (1.0-2.8) Lipase 59 (23-300) U/L Urine RBC 1-5/hpf (0-5/HPF) Urine WBC None seen (0-5/HPF) Ur Squamous Epith Cells None seen (0-5/HPF) Urine Bacteria None seen (None) Vol Urine Centrifuged 10ml (spun) Urine Dip Bedside Urine Glucose Negative Bedside Urine Bilirubin - Negative Bedside Urine Ketone - Negative Urine Specific Purlear 1.020 Bedside Urine Occult Blood +/- Bedside Urine pH 6 Bedside Urine Protein +/- 15 Bedside Urine Urobilinogen - Negative Bedside Urine Nitrite - Negative Bedside Urine Leukocytes - Negative Esterase MDM Narrative Medical decision making narrative: Patient clinically looks well normal vital signs and normal lab work. He was hydrated with 1 L of normal saline, his rectal exam was negative for any guaiac. I have asked him to start the Nexium OTC and take it approximately 1 hour before any food in the morning for the next 2 weeks, contact his PCP for follow up. His vomiting resolved prior to his evaluation and he might have some inflammation I think a PPI we will certainly help him, he had a formed stool this morning and no recurrence of diarrhea, I have asked him to try the brat diet for the next couple of days and advance as tolerated. We discussed red flag warning signs in detail, we did review his lab work which was normal but if he develops any new worrisome symptoms, worsening pain, recurrence of any vomiting or diarrhea, fever or any other red flags he should return immediately to the emergency department. <Bobbi Cintron MD - Last Filed: 05/30/25 07:10> Lab Data Labs: Lab Results 05/29/25 05/29/25 Range/Units 15:40 16:55 WBC 10.0 (4.5-11.0) X10^3/uL RBC 6.34 H (4.5-5.9) X10^6/uL Hgb 19.3 H (13.5-17.5) g/dL Hct 55.3 H (41-53) % MCV 87.2 (80-100) fL MCH 30.5 (26-34) PG MCHC 34.9 (30-36) % RDW 14.7 (11.6-14.8) % Plt Count 324 (150-400) X10^3/uL Neut % (Auto) 72.5 (50-75) % Lymph % (Auto) 18.9 L (25-40) % [place] % (Auto) 8.0 (3-14) % Eos % (Auto) 0.2 L (2-4) % Baso % (Auto) 0.4 (0-2) % Neut # (Auto) 7300 H (0061-0721) /uL Lymph # (Auto) 1900 (8723-1895) /uL [place] # (Auto) 800 (0-900) /uL Eos # (Auto) 0 (0-450) /uL Baso # (Auto) 0 (0-100) /uL Sodium 137 (137-145) mmol/L Potassium 4.5 (3.4-5.1) mmol/L Chloride 106 (98-107) mmol/L Carbon Dioxide 24 (22-32) mmol/L BUN 10 (9-20) mg/dL Creatinine 0.92 (0.66-1.25) mg/dL Estimated GFR > 60 (>60) mL/min BUN/Creatinine Ratio 10.9 (6-22) Glucose 109 H (70-99) mg/dL Calcium 9.3 (8.4-10.2) mg/dL Total Bilirubin 0.8 (0.2-1.3) mg/dL AST 48 (17-59) IU/L ALT 47 (<50) IU/L Alkaline Phosphatase 101 (38-126) U/L Total Protein 8.1 (6.3-8.2) g/dL Albumin 4.8 (3.5-5.0) g/dL Globulin 3.3 (1.7-4.1) g/dL Albumin/Globulin Ratio 1.5 (1.0-2.8) Lipase 59 (23-300) U/L Urine RBC 1-5/hpf (0-5/HPF) Urine WBC None seen (0-5/HPF) Ur Squamous Epith Cells None seen (0-5/HPF) Urine Bacteria None seen (None) Vol Urine Centrifuged 10ml (spun) Urine Dip Bedside Urine Glucose Negative Bedside Urine Bilirubin - Negative Bedside Urine Ketone - Negative Urine Specific Purlear 1.020 Bedside Urine Occult Blood +/- Bedside Urine pH 6 Bedside Urine Protein +/- 15 Bedside Urine Urobilinogen - Negative Bedside Urine Nitrite - Negative Bedside Urine Leukocytes - Negative Esterase Discharge Plan Departure Patient Disposition: Home Clinical Impression: Epigastric discomfort, Nausea Activity Restrictions/Additional Instructions: Please keep her activity light and use the brat diet which is bananas, plain rice, applesauce, toast, avoid dairy. I would like you to use your Nexium OTC 1 tablet about 1 hour before any oral intake including liquids in the morning for the next 2 weeks, please do follow up with your primary care provider at the [facility]. This will reduce the amount of acid available in your system. Regarding her nausea I have dispensed some tablets as the pharmacies are now closed in addition to a prescription that you can get filled tomorrow. Keep your liquids clear you may do ice chips, Gatorade, sprite, avoid coffee for now but tea is a good choice. You may consider raising the head of your bed, and again do not hesitate to return to the emergency department if you have any worsening or any new worrisome symptoms. Prescriptions: New ondansetron 4 mg tablet,disintegrating 4 mg PO Q8H Qty: 10 0RF No Action cyclobenzaprine 10 mg tablet 10 mg PO TID PRN (Reason: muscle spasm) Qty: 14 0RF hydrocodone-acetaminophen 5-325 mg tablet 1 tab PO Q4-6H PRN (Reason: pain) Qty: 10 0RF ketorolac 10 mg tablet 10 mg PO Q6H PRN (Reason: pain) Qty: 14 0RF lidocaine [Lidoderm] 5 % adhesive patch,medicated 1 patch TOP DAILY Qty: 15 0RF Rx Instructions: leave on most painful area for 12 hrs methylprednisolone [Medrol (Toby)] 4 mg tablets,dose pack See Rx Instructions .ROUTE .COMPLEX Qty: 21 0RF Rx Instructions: orally per package directions cyclobenzaprine 10 mg tablet 10 mg PO TID PRN (Reason: muscle spasm) Qty: 15 0RF hydrocodone-acetaminophen 5-325 mg tablet 1 tab PO Q6H PRN (Reason: pain) Qty: 10 0RF cyclobenzaprine 5 mg tablet 5 mg PO TID PRN (Reason: muscle spasm) Qty: 10 0RF diazepam [Valium] 5 mg tablet 5 mg PO BEDTIME PRN (Reason: muscle spasm) Qty: 5 0RF Referrals: [facility] [employer] [employer] [Primary Care Provider, Nursing] Stand Alone Forms: Patient Portal/API ED Sign-out <Bobbi Cintron MD - Last Filed: 05/30/25 07:10> Cosign ED Attending Cosignature Attestation: I was immediately available in the department for consultation throughout this patient's visit. Bobbi Cintron MD
[2025-05-29] MEDS: ONDANSETRON 4 MG/2 ML INJ IV (15:45)
[2025-05-29] MEDS: SODIUM CHLORIDE 0.9% 1,000 ML 1000 ML IV (15:46)
[2025-05-29 15:53] LABS: Add Manual Diff / Slide Review NO; Basophils Absolute Auto 0 /uL (0-100); Basophils Percent Auto 0.4 % (0-2); Eosinophils Absolute Auto 0 /uL (0-450); Eosinophils Percent Auto 0.2 % (2-4); Hematocrit 55.3 % (41-53); Hemoglobin 19.3 g/dL (13.5-17.5); Lymphocytes Absolute Auto 1900 /uL (1100-4500); Lymphocytes Percent Auto 18.9 % (25-40); Mean Corpuscular HGB Conc 34.9 % (30-36); Mean Corpuscular Hemoglobin 30.5 PG (26-34); Mean Corpuscular Volume 87.2 fL (80-100); Monocytes Absolute Auto 800 /uL (0-900); Neutrophils Absolute Auto 7300 /uL (1500-7000); Neutrophils Percent Auto 72.5 % (50-75); Platelet Count 324 X10^3/uL (150-400); Red Blood Cell Count 6.34 X10^6/uL (4.5-5.9); Red Cell Distribution Width 14.7 % (11.6-14.8)
[2025-05-29 16:07] LABS: Alanine Aminotransferase 47 IU/L (<50); Albumin 4.8 g/dL (3.5-5.0); Albumin Globulin Ratio 1.5 (1.0-2.8); Alkaline Phosphatase 101 U/L (38-126); Aspartate Aminotransferase 48 IU/L (17-59); BUN Creatinine Ratio 10.9 (6-22); Bilirubin Total 0.8 mg/dL (0.2-1.3); Blood Urea Nitrogen 10 mg/dL (9-20); Calcium 9.3 mg/dL (8.4-10.2); Carbon Dioxide 24 mmol/L (22-32); Chloride 106 mmol/L (98-107); Estimated Glomerular Filt Rate > 60 mL/min (>60); Globulin 3.3 g/dL (1.7-4.1); Glucose 109 mg/dL (70-99); HEMOLYSIS 49 (0-50); Lipase 59 U/L (23-300); Potassium 4.5 mmol/L (3.4-5.1); Sodium 137 mmol/L (137-145); Total Protein 8.1 g/dL (6.3-8.2)
[2025-05-29 17:10] VITALS: BP 143/91; PULSE 81; RESP 18; O2SAT 97
[2025-05-29 17:13] LABS: Bacteria Urine None Seen; RBC Urine 1-5/HPF (0-5/HPF); Squamous Epithelial Cell Urine None Seen (0-5/HPF); Urine Volume 10mL (spun); WBC Urine None Seen (0-5/HPF)
[2025-05-29] MEDS: ONDANSETRON 4 MG ODT PREPACK 1 BOTTLE MISC (17:34)
== END 2025-05-29 17:40 | disposition home or self-care (01) ==
PROVIDERS: Emergency Provider Physician Assistant Medical; Family Provider Nurse Practitioner Family; PCP Nurse Practitioner Family
DX: R10.13 Epigastric pain (principal); R11.0 Nausea; R19.7 Diarrhea, unspecified
CPT/HCPCS: 36415; 80053; 81003; 81015; 83690; 85025; 87086; 96361; 96374; 99284; J2405